=== PATIENT | female | born 1965 | race African-American/Black ===

== ENCOUNTER 2016-04-21 20:07 | Emergency (ER) | payer OTHER ==
[2016-04-21 20:48] VITALS: BP 140/75; PULSE 91; TEMP 98.8; BMI 40.8
[2016-04-22] MEDS ORDERED: IBUPROFEN 600 MG TABLET (FP) PO ONE ×2 (01:50→01:56)
[2016-04-22] MEDS ORDERED: OXYCODONE/APAP 5/325MG COMBO TABLET PO ONE (01:50)
--- NOTE | 2016-04-22 01:57 | PDOC ---
History of Present Illness - General Chief Complaint: Pain, Acute Stated Complaint: SWOLLEN LT KNEE Time Seen by Provider: 04/22/16 01:11 History Source: Patient Exam Limitations: No Limitations - History of Present Illness Initial Comments: 04/22/16 01:52 51yo Female patient presents to ED c/o left knee pain. Patient states while lying in bed on Tuesday, she turn and felt pain in her knee. She report excessive use of Aleve with no relief. She denies CP, Abd pain, n/v/d, back pain , cough, congestion, fall, trauma, or any other complaints at this time. Occurred: reports: last week Severity: Yes: moderate Lower Extremity Pain Location: left: knee Method of Injury: Yes: twisted Modifying Factors: improves with: pain medication, rest Lower Ext. Injury Location - Specific Injury Location Knees: right non-tender, left soft tissue tenderness, left bone tenderness, left pain, bilateral no evidence of injury, bilateral normal range of motion, bilateral normal inspection Extremity Pain Location - Extremity Pain Location Extremity Pain Locations: left: knee Past History - Travel Traveled outside of the country in the last 30 days: No Close contact w/someone who was outside of country & ill: No - Past Medical History Allergies/Adverse Reactions: Allergies Allergy/AdvReac Type Severity Reaction Status Date / Time No Known Allergies Allergy Verified 06/29/15 23:12 Home Medications: Ambulatory Orders Amlodipine Besylate 10 mg PO DAILY 06/29/15 Atorvastatin Calcium 10 mg PO DAILY 06/29/15 Glipizide 10 mg PO DAILY 06/29/15 Metformin HCl [Glucophage] 1,000 mg PO BID 06/29/15 Hydrocodone/Acetaminophen [Vicodin 5-300 mg Tablet] 1 - 2 each PO QID PRN #20 tablet MDD 8 tabs 06/30/15 Naproxen [Naprosyn -] 500 mg PO BID PRN #14 tablet 06/30/15 Diclofenac Sodium [Voltaren] 4 gm TP QID PRN #100 gel..gram. 04/22/16 Oxycodone HCl/Acetaminophen [Percocet 10-325 mg Tablet] 1 each PO Q6H PRN #20 tablet MDD 4 tabs 04/22/16 Diabetes: Yes HTN: Yes - Surgical History Cholecystectomy: Yes - Immunization History Immunization Up to Date: Yes - Psycho/Social/Smoking Cessation Hx Anxiety: No Suicidal Ideation: No Smoking History: Current every day smoker Number of Cigarettes Smoked Daily: 10 Information on smoking cessation initiated: No Hx Alcohol Use: No Drug/Substance Use Hx: No Substance Use Type: None Review of Systems - Review of Systems Able to Perform ROS?: Yes Is the patient limited Georgian proficient: No Constitutional: No: Chills, Fever HEENTM: No: Blurred Vision, Double Vision Respiratory: No: Cough, Orthopnea, Shortness of Breath Cardiac (ROS): No: Chest Pain, Lightheadedness, Palpitations ABD/GI: No: Diarrhea, Nausea, Poor Appetite, Poor Fluid Intake, Vomiting : No: Dysuria, Frequency, Flank Pain, Hematuria Musculoskeletal: Yes: Joint Pain, Joint Stiffness. No: Back Pain Integumentary: No: Bruising, Erythema Neurological: No: Headache, Seizure, Tingling, Tremors, Weakness All Other Systems: Reviewed and Negative *Physical Exam - Vital Signs Last Vital Signs Temp Pulse Resp BP Pulse Ox 98.8 F 91 H 16 140/75 100 04/21/16 20:45 04/21/16 20:45 04/21/16 20:45 04/21/16 20:45 04/21/16 20:45 - Physical Exam General Appearance: Yes: Nourished, Appropriately Dressed, Mild Distress Neck: positive: Trachea midline, Supple Respiratory/Chest: positive: Lungs Clear, Normal Breath Sounds Cardiovascular: positive: Regular Rhythm, Regular Rate Gastrointestinal/Abdominal: positive: Normal Bowel Sounds, Soft Musculoskeletal: positive: Normal Inspection Extremity: positive: Normal Capillary Refill, Normal Inspection, Normal Range of Motion, Other (Lt Knee tenderness on examination. ROM WNL. Patient able to bear weight.) Integumentary: positive: Normal Color, Dry, Warm Neurologic: positive: diversity manager II-XII NML intact, Fully Oriented, Alert, Normal Mood/ Affect, Normal Response, Motor Strength 5/5 *DC/Admit/Observation/Transfer Diagnosis at time of Disposition: Arthritis Left knee pain Qualifiers: Chronicity: acute Qualified Code(s): M25.562 - Pain in left knee - Discharge Dispostion Disposition: HOME Condition at time of disposition: Stable Admit: No - Prescriptions Prescriptions: Oxycodone HCl/Acetaminophen [Percocet 10-325 mg Tablet] 1 each PO Q6H PRN #20 tablet MDD 4 tabs PRN Reason: Severe Pain Diclofenac Sodium [Voltaren] 4 gm TP QID PRN #100 gel..gram. PRN Reason: Knee Pain - Referrals Referrals: Key Romero MD [Primary Care Provider] - Rodolfo Garcia MD [Staff Physician] - - Patient Instructions Printed Discharge Instructions: DI for Knee Pain, DI for Arthritis Additional Instructions: FOLLOW UP WITH DR. GARCIA (ORTHOPEDIC). CALL TO SCHEDULE APPOINTMENT. TAKE MEDICATIONS PRESCRIBED. DO NOT DRIVE, DRINK ALCOHOL, OR OPERATE HEAVY MACHINERY WHILE TAKING PERCOCET. APPLY WARM COMPRESS TO AFFECTED AREA NEEDED. RETURN IF ANY CONCERNS FOR FURTHER EVALUATION. Print Language: RWANDAN - Post Discharge Activity Work/School Note: Back to Work
[2016-04-22] MEDS ORDERED: OXYCODONE/APAP 5/325MG COMBO TABLET ONE (02:01)
[2016-04-22] MEDS ORDERED: KETOROLAC TROMETHAMINE 30 MG/1 ML VIAL IM ONE (02:01)
[2016-04-22] MEDS ORDERED: KETOROLAC TROMETHAMINE 30 MG/1 ML VIAL ONE (02:27)
== END 2016-04-22 02:33 | disposition home or self-care (01) ==
LOC: JERFT 20:07 → JER 20:07 → MERGE 20:07 → JER 04-22 02:33
PROC: 3E0233Z Introduction of Anti-inflammatory into Muscle, Percutaneous Approach (ICD-10-PCS; principal; 2016-04-21)
DX: M13.862 Other specified arthritis, left knee (principal); I10 Essential (primary) hypertension; E11.9 Type 2 diabetes mellitus without complications; Z79.84 Long term (current) use of oral hypoglycemic drugs
CPT/HCPCS: 73562-TC-LT; 99281-25

== ENCOUNTER 2016-08-05 07:27 | Emergency (ER) | payer OTHER ==
[2016-08-05 07:42] VITALS: BP 149/68; PULSE 84; TEMP 98; BMI 41.5
[2016-08-05] MEDS ORDERED: KETOROLAC TROMETHAMINE 30 MG/1 ML VIAL IVPUSH ONE (08:42)
--- NOTE | 2016-08-05 08:47 | PDOC ---
History of Present Illness <Sandra Albarado - Last Filed: 08/05/16 08:49> - History of Present Illness Initial Comments: 08/05/16 08:48 - History of Present Illness Initial Comments: 08/05/16 08:47 Patient is a 51 year old female with a significant past medical history of DM, hyperlipidemia and hypertension who presents to the ED with right elbow pain and swelling, spontaneous onset. Patient states that she was getting of the bus yesterday as she developed a pain with sudden onset to the right elbow. She states that the pain originates in the right upper extremity and radiates down the entire arm with tingling of the fingers. Patient also notes swelling of the right elbow and difficulty to move RUE or bend at the right elbow. She denies any broken skin at the right elbow. She denies any injury or trauma to the area She denies fever or chills. She denies any recent trauma. She denies any history of fracture of the right elbow. Patient denies prior history of DVT. PCP - Dr. Chano Romero Allergies - NKA <Sandra Albarado - Last Filed: 08/05/16 08:48> - General Chief Complaint: Pain Stated Complaint: RT SIDE PAIN Time Seen by Provider: 08/05/16 08:24 <Jaenen Leal - Last Filed: 08/06/16 15:17> - General Chief Complaint: Pain Stated Complaint: RT SIDE PAIN Time Seen by Provider: 08/05/16 08:24 Past History <Sandra Albarado - Last Filed: 08/05/16 08:49> - Past Medical History Diabetes: Yes HTN: Yes - Surgical History Abdominal Surgery: Yes Cholecystectomy: Yes - Immunization History Immunization Up to Date: Yes - Psycho/Social/Smoking Cessation Hx Anxiety: No Suicidal Ideation: No Smoking History: Current every day smoker Have you smoked in the past 12 months: Yes Number of Cigarettes Smoked Daily: 10 Information on smoking cessation initiated: No Hx Alcohol Use: No Drug/Substance Use Hx: No Substance Use Type: None <Janeen Leal - Last Filed: 08/06/16 15:17> - Past Medical History Allergies/Adverse Reactions: Allergies Allergy/AdvReac Type Severity Reaction Status Date / Time No Known Allergies Allergy Verified 01/07/14 16:37 Home Medications: Ambulatory Orders Metformin HCl [Glucophage] 1,000 mg PO BID 03/14/12 Oxycodone HCl/Acetaminophen [Percocet 5-325 mg Tablet -] 1 - 2 tab PO Q4H #20 tablet 01/07/14 Sulfamethoxazole/Trimethoprim [Bactrim DS -] 2 tab PO BID #28 tablet 01/07/14 Amlodipine Besylate 10 mg PO DAILY 06/29/15 Atorvastatin Calcium 10 mg PO DAILY 06/29/15 Glipizide 10 mg PO DAILY 06/29/15 Metformin HCl [Glucophage] 1,000 mg PO BID 06/29/15 Hydrocodone/Acetaminophen [Vicodin 5-300 mg Tablet] 1 - 2 each PO QID PRN #20 tablet MDD 8 tabs 06/30/15 Naproxen [Naprosyn -] 500 mg PO BID PRN #14 tablet 06/30/15 Diclofenac Sodium [Voltaren] 4 gm TP QID PRN #100 gel..gram. 04/22/16 Oxycodone HCl/Acetaminophen [Percocet 10-325 mg Tablet] 1 each PO Q6H PRN #20 tablet MDD 4 tabs 04/22/16 Review of Systems - Review of Systems Able to Perform ROS?: Yes Comments:: 08/05/16 08:45 12 point review of systems is as per history of present illness and otherwise negative <Janeen Leal - Last Filed: 08/06/16 15:17> *Physical Exam - Vital Signs Last Vital Signs Temp Pulse Resp BP Pulse Ox 98 F 84 18 149/68 100 08/05/16 07:39 08/05/16 07:39 08/05/16 07:39 08/05/16 07:39 08/05/16 07:39 <Sandra Albarado - Last Filed: 08/05/16 08:49> - Vital Signs Last Vital Signs Temp Pulse Resp BP Pulse Ox 98 F 84 18 149/68 100 08/05/16 07:39 08/05/16 07:39 08/05/16 07:39 08/05/16 07:39 08/05/16 07:39 - Physical Exam Comments: 08/05/16 08:45 Physical exam Last Vital Signs Temp Pulse Resp BP Pulse Ox 98 F 84 18 149/68 100 08/05/16 07:39 08/05/16 07:39 08/05/16 07:39 08/05/16 07:39 08/05/16 07:39 GENERAL: The patient is awake, alert, and fully oriented, and in no apparent distress. HEAD: Normal with no signs of trauma. EYES: sclera anicteric, conjunctiva are normal. ENT: Moist mucous membranes. NECK: Normal range of motion, supple LUNGS: Breath sounds equal, clear to auscultation bilaterally. No wheezes, and no crackles. HEART: Regular rate and rhythm, normal S1 and S2 without murmur, rub or gallop. ABDOMEN: Soft, nontender, normoactive bowel sounds. No guarding, no rebound. No masses appreciated. EXTREMITIES: Right upper extremity There is full range of motion of the right shoulder and right wrist There is swelling and tenderness from the mid right upper extremity, to the mid forearm, with diffuse tenderness without point tenderness There is decreased range of motion of the elbow There is some tenderness in the olecranon bursa, but it is not particularly swollen (mildly swollen and NOT fluctuant, boggy, or warm) There is no erythema or warmth The radial pulses intact Patient is able to make a fist and open her hand NEUROLOGICAL: Cranial nerves II through XII grossly intact. Normal speech, normal gait. Grossly nonfocal neurologic exam PSYCH: Normal mood, normal affect. SKIN: Warm, Dry, <Janeen Leal - Last Filed: 08/06/16 15:17> ED Treatment Course - LABORATORY CBC & Chemistry Diagram: 08/05/16 09:04 08/05/16 09:04 - RADIOLOGY Radiology Studies Ordered: Category Date Time Status ELBOW-RIGHT [RAD] Stat Radiology 08/05/16 08:40 Ordered FOREARM- RIGHT [RAD] Stat Radiology 08/05/16 08:40 Ordered HUMERUS-RIGHT [RAD] Stat Radiology 08/05/16 08:40 Ordered DUPLEX VASCUL US-1 ARM [US] Stat Ultrasound 08/05/16 08:41 Ordered <Janeen Leal - Last Filed: 08/06/16 15:17> Medical Decision Making - Medical Decision Making 08/05/16 11:05 Laboratory Results - last 24 hr 08/05/16 08/05/16 08/05/16 09:04 09:04 09:04 WBC 8.5 RBC 5.05 Hgb 12.9 Hct 40.5 MCV 80.1 MCHC 31.8 L RDW 14.9 Plt Count 290 MPV 7.2 L Sodium 137 Potassium 4.4 Chloride 100 Carbon Dioxide 28 Anion Gap 9 BUN 12 Creatinine 0.7 Creat Clearance w eGFR > 60 Random Glucose 231 H Uric Acid 2.7 Cancelled Calcium 9.3 Total Bilirubin 0.3 D AST 15 D ALT 31 Alkaline Phosphatase 95 Total Protein 6.7 Albumin 3.6 08/05/16 11:06 DVT ultrasound of the right arm No evidence of DVT All veins are widely patent with normal flow 08/05/16 11:43 Right humerus, forearm, and elbow as read by me-NAD Awaiting radiologist report 08/05/16 11:46 Right elbow series, right forearm series, and right humerus series- NAD as read by radiology 08/05/16 11:[address] Verdugo's office-Dr. Verdugo will see the patient at 2:40 PM this afternoon in the office for further evaluation <Janeen Leal - Last Filed: 08/06/16 15:17> *DC/Admit/Observation/Transfer <Sandra Ablarado - Last Filed: 08/05/16 08:49> <Janeen Leal - Last Filed: 08/06/16 15:17> Diagnosis at time of Disposition: Right elbow pain, Right arm pain - Discharge Dispostion Disposition: HOME - Referrals Referrals: Key Romero MD [Primary Care Provider] - Christian Verdugo MD [Staff Physician] - (Orthopedics-you have an appointment with Dr. Verdugo at 2:40 PM today at [facility]) - Patient Instructions Printed Discharge Instructions: DI for Elbow Pain, How to Use a Sling Additional Instructions: Sling, rest, Tylenol or Motrin for pain Please follow-up with Dr. Verdugo in the office at [facility] at 2:40 PM today- an appointment has been made for you Followup with your primary care physician in 24-48 hours Return immediately if you worsen in any way - Post Discharge Activity Work/School Note: Back to Work
[2016-08-05] MEDS ORDERED: KETOROLAC TROMETHAMINE 30 MG/1 ML VIAL ONE (08:59)
[2016-08-05 09:37] LABS: ALBUMIN 3.6 g/dl (3.4-5.0); ANION GAP 9 (8-16); BILIRUBIN,TOTAL 0.3 mg/dL (0.2-1.0); CALCIUM 9.3 mg/dL (8.5-10.1); CO2 28 mmol/L (21-32); CREATININE 0.7 mg/dL (0.55-1.02); GLUCOSE,RANDOM 231 mg/dL (74-106); SGOT/AST 15 U/L (15-37); SGPT/ALT 31 U/L (12-78); URIC ACID 2.7 mg/dL (2.6-7.2)
[2016-08-05 09:40] LABS: ALK PHOS 95 U/L (45-117); TOT PROT 6.7 g/dl (6.4-8.2)
[2016-08-05 09:54] LABS: MCH 25.5 pg (25.7-33.7); MCHC 31.8 g/dl (32.0-36.0); MEAN CELL VOLUME 80.1 fl (80-96); MEAN PLT VOLUME 7.2 fl (7.5-11.1); PLATELET COUNT 290 K/MM3 (134-434); RDW 14.9 % (11.6-15.6); WHITE BLOOD COUNT 8.5 K/mm3 (4.0-10.0)
== END 2016-08-05 12:07 | disposition home or self-care (01) ==
LOC: JER 07:27 → MERGE 07:27 → JER 12:07
DX: M25.521 Pain in right elbow (principal); I10 Essential (primary) hypertension; E78.5 Hyperlipidemia, unspecified; E11.9 Type 2 diabetes mellitus without complications; Z79.84 Long term (current) use of oral hypoglycemic drugs; F17.210 Nicotine dependence, cigarettes, uncomplicated
CPT/HCPCS: 36415; 73060-TC-RT; 73070-TC-RT; 73090-TC-RT; 80053; 84550; 85027; 85651; 93971; 99282-25

== ENCOUNTER 2016-12-19 09:19 | Emergency (ER) | payer OTHER ==
[2016-12-19 09:23] VITALS: BMI 42.4
[2016-12-19] MEDS ORDERED: KETOROLAC TROMETHAMINE 30 MG/1 ML VIAL IVPUSH ONE (09:46)
--- NOTE | 2016-12-19 09:51 | PDOC ---
History of Present Illness - General Chief Complaint: Pain Stated Complaint: BACK, ABD PAIN Time Seen by Provider: 12/19/16 09:41 History Source: Patient - History of Present Illness Timing/Duration: reports: constant Quality: reports: other Abdominal Pain Onset Location: reports: flank Past History - Past Medical History Allergies/Adverse Reactions: Allergies Allergy/AdvReac Type Severity Reaction Status Date / Time No Known Allergies Allergy Verified 12/19/16 09:23 Home Medications: Ambulatory Orders Metformin HCl [Glucophage] 1,000 mg PO BID 03/14/12 Oxycodone HCl/Acetaminophen [Percocet 5-325 mg Tablet -] 1 - 2 tab PO Q4H #20 tablet 01/07/14 Sulfamethoxazole/Trimethoprim [Bactrim DS -] 2 tab PO BID #28 tablet 01/07/14 Amlodipine Besylate 10 mg PO DAILY 06/29/15 Atorvastatin Calcium 10 mg PO DAILY 06/29/15 Glipizide 10 mg PO DAILY 06/29/15 Hydrocodone/Acetaminophen [Vicodin 5-300 mg Tablet] 1 - 2 each PO QID PRN #20 tablet MDD 8 tabs 06/30/15 Naproxen [Naprosyn -] 500 mg PO BID PRN #14 tablet 06/30/15 Diclofenac Sodium [Voltaren] 4 gm TP QID PRN #100 gel..gram. 04/22/16 Clindamycin [Cleocin -] 300 mg PO Q6HPO #28 capsule 12/19/16 Tramadol HCl 50 mg PO Q6H #10 tablet MDD 200 mg 12/19/16 Diabetes: Yes HTN: Yes - Surgical History Abdominal Surgery: Yes (HERNIA) Cholecystectomy: Yes - Immunization History Immunization Up to Date: Yes - Psycho/Social/Smoking Cessation Hx Anxiety: No Suicidal Ideation: No Smoking Status: No Smoking History: Current every day smoker Have you smoked in the past 12 months: Yes Number of Cigarettes Smoked Daily: 10 Information on smoking cessation initiated: Yes 'Breaking Loose' booklet given: 12/19/16 Hx Alcohol Use: Yes (SOCIAL) Drug/Substance Use Hx: No Substance Use Type: None Hx Substance Use Treatment: No Review of Systems - Review of Systems Constitutional: No: Chills, Fever Respiratory: No: Shortness of Breath Cardiac (ROS): No: Chest Pain ABD/GI: Yes: Nausea. No: Vomiting : Yes: Flank Pain. No: Dysuria, Hematuria Integumentary: Yes: Other (abscess) *Physical Exam - Vital Signs Last Vital Signs Temp Pulse Resp BP Pulse Ox 99.0 F 102 H 18 138/77 100 12/19/16 09:20 12/19/16 09:20 12/19/16 09:20 12/19/16 09:20 12/19/16 09:20 - Physical Exam General Appearance: Yes: Appropriately Dressed, Moderate Distress HEENT: positive: Normal Voice Neck: positive: Supple Respiratory/Chest: positive: Lungs Clear, Normal Breath Sounds. negative: Respiratory Distress Cardiovascular: positive: Regular Rate, S1, S2 Female Pelvic Exam: positive: other (~1.5cm induration to L suprapubic area w/ ? fluctucance, no overlying erythema) Gastrointestinal/Abdominal: positive: Tender (poorly localized tenderness to R flank/groin, unclear ttp over mcburneys given pannus, no CVAT), Soft Musculoskeletal: negative: CVA Tenderness Extremity: positive: Normal Inspection Integumentary: positive: Dry, Warm Neurologic: positive: Fully Oriented, Alert, Normal Mood/Affect Procedures - Incision and Drainage I&D Site: Left: Groin (~2cm induration w/ ?fluctuance, no overlying erythema) Anesthesia: 1% Lidocaine Volume(ml): 9 Blade Size: 11 Attempts: 1 (w/ copious pus) Iodinated Packin/4 in Plain Packing: Yes Complications: none Dressing: Yes ED Treatment Course - LABORATORY CBC & Chemistry Diagram: 12/19/16 10:30 12/19/16 10:30 Medical Decision Making - Medical Decision Making 12/19/16 09:47 51 yo obesed female, h/o NIDDM, HTN, s/p maxwell and umbilical hernia repair, here w/ R flank pain x 4 days. Unable to describe pain but states it is constant and 10/10 in intensity w/ no exacerbating/alleviating factors. Also reports "loose" bowel movement and nausea. No vomiting, dysuria or hematuria. No h/o kidney stone or gallstones. Pt also c/o "abscess" to L side of suprapubic area x 3-4 days. No drainage See exam R flank pain Renal stone vs pyelo vs less likely appy vs atypical presentation of diverticulitis, small L suprapubic abscess unlikely source of R flank pain especially w/ no overlying/extensive cellulitis -pain control -labs -I&D suprapubic abscess 12/19/16 09:59 12/19/16 10:09 12/19/16 11:08 BG in the 387, no gap. IVF in progress. 1+ bld on ua, CT r/o stone pending 12/19/16 11:09 12/19/16 12:29 CT read as neg for acute pathology. 12/19/16 12:59 S/p I&D w/ copious pus. Will start on abx in setting of uncontrolled DM and have pt return in 2 days for wound check. IVF in progress for BG of 387, will rpt FS 12/19/16 13:22 12/19/16 14:25 FS 261. Pt stable for discharge at this time 12/19/16 14:28 *DC/Admit/Observation/Transfer Diagnosis at time of Disposition: Flank pain, Abscess - Discharge Dispostion Disposition: HOME Condition at time of disposition: Improved - Prescriptions Prescriptions: Clindamycin [Cleocin -] 300 mg PO Q6HPO #28 capsule Tramadol HCl 50 mg PO Q6H #10 tablet MDD 200 mg - Referrals Referrals: Key Romero MD [Primary Care Provider] - - Patient Instructions Additional Instructions: The cause of your flank pain is unclear at this time as your CAT scan did not reveal any etiology. Pain is possibly muscular versus radiation from your groin abscess. Take tramadol for severe pain only. Regarding your wound, keep it clean and dry and return to ER for wound check in 48 hours. Take antibiotics as prescribed. Please follow-up with your primary care physician next week for better management of your diabetes
[2016-12-19 10:19] LABS: URINE APPEARANCE CLEAR; URINE BILIRUBIN NEGATIVE (NEGATIVE); URINE BLOOD 1+ (NEGATIVE); URINE COLOR LTYELLOW; URINE GLUCOSE (UA) 3+ (NEGATIVE); URINE KETONE NEGATIVE (NEGATIVE); URINE NITRITE NEGATIVE (NEGATIVE); URINE PROTEIN NEGATIVE (NEGATIVE); URINE UROBILINOGEN NEGATIVE mg/dL (0.2-1.0)
[2016-12-19] MEDS ORDERED: KETOROLAC TROMETHAMINE 30 MG/1 ML VIAL ONE (10:19)
[2016-12-19 10:29] LABS: URINE LEUK ESTERASE 1+ (NEGATIVE); URINE RBC 4 /hpf (0-3); URINE WBC 9 /hpf (3-5)
[2016-12-19 10:38] LABS: BASOPHIL 0.6 % (0-2.0); EOSINOPHIL 1.3 % (0-4.5); MCH 25.8 pg (25.7-33.7); MCHC 32.4 g/dl (32.0-36.0); MEAN CELL VOLUME 79.5 fl (80-96); MEAN PLT VOLUME 6.4 fl (7.5-11.1); NEUTROPHILS 71.1 % (42.8-82.8); PLATELET COUNT 301 K/MM3 (134-434); RDW 14.6 % (11.6-15.6); WHITE BLOOD COUNT 8.9 K/mm3 (4.0-10.0)
[2016-12-19 11:00] LABS: ALBUMIN 3.4 g/dl (3.4-5.0); ANION GAP 7 (8-16); BILIRUBIN,TOTAL 0.3 mg/dL (0.2-1.0); CALCIUM 9.3 mg/dL (8.5-10.1); CO2 28 mmol/L (21-32); CREATININE 0.8 mg/dL (0.55-1.02); SGOT/AST 9 U/L (15-37); SGPT/ALT 31 U/L (12-78); TOT PROT 6.8 g/dl (6.4-8.2)
[2016-12-19 11:01] LABS: ALK PHOS 93 U/L (45-117)
[2016-12-19 11:07] LABS: GLUCOSE,RANDOM 387 mg/dL (74-106)
[2016-12-19] MEDS ORDERED: SODIUM CHLORIDE 1,000 ML IV STA (11:07)
[2016-12-19] MEDS ORDERED: traMADol HCL 50 MG TABLET PO ONE (13:00)
[2016-12-19] MEDS ORDERED: traMADol HCL 50 MG TABLET ONE (14:10)
[2016-12-19 14:29] VITALS: BP 140/75; PULSE 84; TEMP 98.2
== END 2016-12-19 14:40 | disposition home or self-care (01) ==
LOC: JER 09:19
PROC: 0J980ZZ Drainage of Abdomen Subcutaneous Tissue and Fascia, Open Approach (ICD-10-PCS; principal; 2016-12-19)
PROC: 3E0337Z Introduction of Electrolytic and Water Balance Substance into Peripheral Vein, Percutaneous Approach (ICD-10-PCS; 2016-12-19)
PROC: 3E0333Z Introduction of Anti-inflammatory into Peripheral Vein, Percutaneous Approach (ICD-10-PCS; 2016-12-19)
DX: L02.214 Cutaneous abscess of groin (principal); I10 Essential (primary) hypertension; E11.9 Type 2 diabetes mellitus without complications; Z79.84 Long term (current) use of oral hypoglycemic drugs; F17.210 Nicotine dependence, cigarettes, uncomplicated
CPT/HCPCS: 36415; 74176-TC; 80053; 81003; 81015; 85025; 87086; 87186; 99282-25

== ENCOUNTER 2016-12-21 18:57 | Emergency (ER) | payer OTHER ==
[2016-12-21 19:00] VITALS: BP 148/73; PULSE 97; TEMP 98.8; BMI 40.8
--- NOTE | 2016-12-21 20:20 | PDOC ---
Suture Removal/Wound Check HPI - History of Present Illness Chief Complaint: Revisit,Wound Recheck Stated Complaint: wound check Time Seen by Provider: 12/21/16 20:10 History Source: Yes: Patient Exam Limitations: Yes: No Limitations Treated at: [facility] ED - Previous ED Treatment Type of procedure performed on last visit: Yes: I&D of Abscess Tetanus Immunization: Yes: Up to Date Antibiotics Prescribed: Yes (taking since yesterday) - Onset of Previous Treatment Comment:: 12/21/16 20:18 Him for evaluation of wound/post incision and drainage of abscess to lower abdomen pubic area. Was seen here 2 days ago, started antibiotics yesterday secondary to inability to receive from pharmacy. Patient denies fever, states packing fell out yesterday. Is is improving with less swelling and tenderness Past History - Travel Traveled outside of the country in the last 30 days: No Close contact w/someone who was outside of country & ill: No - Past Medical History Allergies/Adverse Reactions: Allergies No Known Allergies Allergy (Verified 12/21/16 19:00) Home Medications: Ambulatory Orders Metformin HCl [Glucophage] 1,000 mg PO BID 03/14/12 Oxycodone HCl/Acetaminophen [Percocet 5-325 mg Tablet -] 1 - 2 tab PO Q4H #20 tablet 01/07/14 Sulfamethoxazole/Trimethoprim [Bactrim DS -] 2 tab PO BID #28 tablet 01/07/14 Amlodipine Besylate 10 mg PO DAILY 06/29/15 Atorvastatin Calcium 10 mg PO DAILY 06/29/15 Glipizide 10 mg PO DAILY 06/29/15 Hydrocodone/Acetaminophen [Vicodin 5-300 mg Tablet] 1 - 2 each PO QID PRN #20 tablet MDD 8 tabs 06/30/15 Naproxen [Naprosyn -] 500 mg PO BID PRN #14 tablet 06/30/15 Diclofenac Sodium [Voltaren] 4 gm TP QID PRN #100 gel..gram. 04/22/16 Clindamycin [Cleocin -] 300 mg PO Q6HPO #28 capsule 12/20/16 Tramadol HCl 50 mg PO Q6H #10 tablet MDD 200 mg 12/20/16 General: Yes: no pertinent history - Immunization History Immunizations Up to Date: Yes Tetanus Status: Less than 5 years - Social History Smoking History: No Smoking Status: Never smoked Number of Ciarettes Per Day: 10 Alcohol Use: none Drug Use: none Suture Removal/Wound Check PE - Physical Exam Laceration/Wound Check Symptoms: reports: None Current Severity Level: None Maximum Severity Level: None Pain Localization: None Pain Radiation: None *Review of Systems - Review of Systems Able to Perform ROS?: Yes Constitutional: Yes: Symptoms Reported, See HPI, Malaise. No: Fever HEENTM: No: Symptoms Reported ABD/GI: Yes: Symptoms Reported, See HPI, Other Musculoskeletal: No: Symptoms Reported (abdominal wound) Integumentary: Yes: Symptoms Reported, See HPI, Rash All Other Systems: Reviewed and Negative Medical Decision Making - Medical Decision Making 12/21/16 20:15 Healing status post incision and drainage, induration resolving, will continue antibiotics and hot soaks. 12/21/16 20:19 *DC/Admit/Observation/Transfer Diagnosis at time of Disposition: Visit for wound check - Discharge Dispostion Disposition: HOME Condition at time of disposition: Stable Admit: No - Referrals Referrals: Key Romero MD [Primary Care Provider] - Humberto Warner MD [Staff Physician] - - Patient Instructions Additional Instructions: Rest, keep area elevated. Avoid strenuous activity or exercise until wound is healed Use hot soaks to area to bring more blood to the surface and encourage drainage May change dressings as needed to keep clean - Allow water from shower to wash area thoroughly for 2-3 minutes, and pat dry upon exit of shower and replace dressing. Change his dressing daily until the wound is completely healed. May use Tylenol or Motrin for mild pain relief Use stronger medications as directed and prescribed Continue all medications as prescribed Followup with private physician in 2-3 days for wound check Return to emergency Department for worsening swelling, pain, redness, fevers as needed - Post Discharge Activity Work/School Note: Back to Work
== END 2016-12-21 20:25 | disposition home or self-care (01) ==
LOC: JERFT 18:57
DX: Z09 Encounter for follow-up examination after completed treatment for conditions other than malignant neoplasm (principal)
CPT/HCPCS: 99281-25

== ENCOUNTER 2017-01-19 11:29 | Emergency (ER) | payer OTHER ==
[2017-01-19 11:41] VITALS: BP 144/70; PULSE 85; TEMP 98.2; BMI 42.4
[2017-01-19] MEDS ORDERED: KETOROLAC TROMETHAMINE 30 MG/1 ML VIAL IM ONE (12:25)
--- NOTE | 2017-01-19 12:26 | PDOC ---
History of Present Illness - General Chief Complaint: Back Pain Stated Complaint: Right lowe back pain radiating to leg Time Seen by Provider: 01/19/17 12:12 History Source: Patient Exam Limitations: No Limitations - History of Present Illness Initial Comments: 01/19/17 12:53 Chief complaint: Back pain Patient 51-year-old female with a history of diabetes, states that her sugars were in the 100s yesterday came in complaining of right sided back and hip pain , states she's had this in the past and feels similar. No numbness, dysuria, incontinence or saddle anesthesia. No fever. Patient is ambulatory but uncomfortable. GENERAL/CONSTITUTIONAL: No fever, weakness. dizziness HEAD, EYES, EARS, NOSE AND THROAT: No change in vision. No ear pain or discharge. No sore throat. CARDIOVASCULAR: No chest pain RESPIRATORY: No shortness of breath or cough GASTROINTESTINAL: No pain, nausea, vomiting, diarrhea or constipation GENITOURINARY: No dysuria MUSCULOSKELETAL: no: neck, +back pain SKIN: No rash NEUROLOGIC: No headache, vertigo, loss of consciousness, or loss of sensation. GENERAL: The patient is awake, alert, and fully oriented, in no acute distress. HEAD: Normal with no signs of trauma. EYES: Pupils equal, round and reactive to light, sclera anicteric, conjunctiva clear. ENT: pharynx: no erythema, no exudate, uvula midline NECK: supple CHEST: clear, nontender, rr ABD: soft, nontender Back: Right SI tenderness, no CVAT EXTREMITIES: Normal range of motion, no edema. Strength 5 out of 5 upper and lower extremities, bilaterally, neurovascular intact NEUROLOGICAL: Normal speech, normal gait. SKIN: Warm, Dry Past History - Past Medical History Allergies/Adverse Reactions: Allergies Allergy/AdvReac Type Severity Reaction Status Date / Time No Known Allergies Allergy Verified 01/19/17 11:41 Home Medications: Ambulatory Orders Metformin HCl [Glucophage] 1,000 mg PO BID 03/14/12 Glipizide 10 mg PO DAILY 06/29/15 Amlodipine Besylate 5 mg PO DAILY 01/19/17 Oxycodone HCl/Acetaminophen [Percocet 5-325 mg Tablet] 1 tab PO Q6H #20 tablet MDD 4 01/19/17 Sitagliptin Phosphate [Januvia] 100 mg PO DAILY 01/19/17 Diabetes: Yes HTN: Yes - Surgical History Abdominal Surgery: Yes (HERNIA, tubal ligation) Cholecystectomy: Yes - Immunization History Immunization Up to Date: Yes - Suicide/Smoking/Psychosocial Hx Smoking Status: No Smoking History: Current every day smoker Have you smoked in the past 12 months: Yes Number of Cigarettes Smoked Daily: 10 Information on smoking cessation initiated: Yes 'Breaking Loose' booklet given: 01/19/17 Hx Alcohol Use: Yes (Occasionally) Drug/Substance Use Hx: No Substance Use Type: None Hx Substance Use Treatment: No *Physical Exam - Vital Signs Last Vital Signs Temp Pulse Resp BP Pulse Ox 98.2 F 85 15 144/70 100 01/19/17 11:38 01/19/17 11:38 01/19/17 11:38 01/19/17 11:38 01/19/17 11:38 ED Treatment Course - RADIOLOGY Radiology Studies Ordered: Category Date Time Status SPINE-LUMBAR ONLY [RAD] Stat Radiology 01/19/17 12:24 Ordered Medical Decision Making - Medical Decision Making 01/19/17 13:50 Patient with symptoms consistent with sciatica, right, abdominal exam is benign. No recent imaging of her back. Will get an x-ray, check a UA given that she is diabetic and if pain medicine and reassess. Patient has no saddle anesthesia, incontinence, dysuria, numbness and is able to ambulate 01/19/17 15:07 Patient felt better on discharge, x-ray showed no acute pathology *DC/Admit/Observation/Transfer Diagnosis at time of Disposition: Sciatica Qualifiers: Laterality: right Qualified Code(s): M54.31 - Sciatica, right side - Discharge Dispostion Disposition: HOME Condition at time of disposition: Stable Admit: No - Prescriptions Prescriptions: Oxycodone HCl/Acetaminophen [Percocet 5-325 mg Tablet] 1 tab PO Q6H #20 tablet MDD 4 - Referrals Referrals: Key Romero MD [Primary Care Provider] - Aj Stratton MD [Staff Physician] - - Patient Instructions Additional Instructions: No heavy lifting or bending Apply ice to the area 20 minutes every 2 hours for the next 2 days Continue taking Motrin 600 mg every 6 hours for pain. If still in pain he can also take Percocet one to 2 tablets every 4 hours. Return to the nearest ER if numbness, weakness, severe pain, problems with urinating or having bowel movements. Call orthopedist today for an appointment for further evaluation - Post Discharge Activity Forms/Work/School Notes: Back to Work
[2017-01-19] MEDS ORDERED: KETOROLAC TROMETHAMINE 30 MG/1 ML VIAL ONE (12:37)
[2017-01-19 12:39] LABS: URINE APPEARANCE SLCLOUDY; URINE BILIRUBIN NEGATIVE (NEGATIVE); URINE BLOOD 1+ (NEGATIVE); URINE COLOR LTYELLOW; URINE GLUCOSE (UA) 3+ (NEGATIVE); URINE KETONE NEGATIVE (NEGATIVE); URINE NITRITE NEGATIVE (NEGATIVE); URINE PROTEIN NEGATIVE (NEGATIVE); URINE UROBILINOGEN NEGATIVE mg/dL (0.2-1.0)
[2017-01-19 12:42] LABS: URINE BACTERIA RARE /hpf (NONE SEEN); URINE MUCUS RARE; URINE RBC <1 /hpf (0-3); URINE WBC 3 /hpf (3-5)
[2017-01-19 16:53] LABS: URINE LEUK ESTERASE 1+ (NEGATIVE)
== END 2017-01-19 14:02 | disposition home or self-care (01) ==
LOC: JERFT 11:29
PROC: 3E0233Z Introduction of Anti-inflammatory into Muscle, Percutaneous Approach (ICD-10-PCS; principal; 2017-01-19)
DX: M54.31 Sciatica, right side (principal); E11.9 Type 2 diabetes mellitus without complications; I10 Essential (primary) hypertension; F17.210 Nicotine dependence, cigarettes, uncomplicated
CPT/HCPCS: 72100-TC; 81003; 81015; 99281-25

== ENCOUNTER 2017-06-20 18:42 | Emergency (ER) | payer OTHER ==
[2017-06-20 19:20] VITALS: BP 140/80; PULSE 87; TEMP 98.4; BMI 43.9
--- NOTE | 2017-06-20 20:32 | PDOC ---
History of Present Illness - General Chief Complaint: Pain Stated Complaint: ABD PAIN Time Seen by Provider: 06/20/17 20:31 History Source: Patient Exam Limitations: No Limitations - History of Present Illness Initial Comments: 06/20/17 21:44 52-year-old female with history of GERD and epigastric pain complains of worsening epigastric pain with burning up the chest into the throat after eating. Patient reports that pain is worse when laying or after eating. Reports slight nausea. Denies vomiting/diarrhea/constipation. No urinary symptoms, chest pain, diaphoresis 06/20/17 21:45 past medical history as listed. Past History - Past Medical History Allergies/Adverse Reactions: Allergies Allergy/AdvReac Type Severity Reaction Status Date / Time No Known Allergies Allergy Verified 06/20/17 19:17 Home Medications: Ambulatory Orders metFORMIN HCL [Glucophage] 1,000 mg PO BID 03/14/12 Glipizide 10 mg PO DAILY 06/29/15 Amlodipine Besylate 5 mg PO DAILY 01/19/17 Oxycodone HCl/Acetaminophen [Percocet 5-325 mg Tablet] 1 tab PO Q6H #20 tablet MDD 4 01/19/17 Sitagliptin Phosphate [Januvia] 100 mg PO DAILY 01/19/17 Famotidine [Pepcid -] 40 mg PO DAILY #14 tablet 06/20/17 Mag Hydrox/Al Hydrox/Simeth [Mylanta Suspension -] 30 ml PO Q6H PRN #1 bottle COPD: No Diabetes: Yes HTN: Yes - Surgical History Abdominal Surgery: Yes (HERNIA, tubal ligation) Cholecystectomy: Yes - Immunization History Immunization Up to Date: Yes - Suicide/Smoking/Psychosocial Hx Smoking Status: No Smoking History: Current every day smoker Have you smoked in the past 12 months: Yes Number of Cigarettes Smoked Daily: 10 Information on smoking cessation initiated: No 'Breaking Loose' booklet given: 01/19/17 Hx Alcohol Use: Yes (Occasionally) Drug/Substance Use Hx: No Substance Use Type: None Hx Substance Use Treatment: No Review of Systems - Review of Systems Able to Perform ROS?: Yes Is the patient limited Turkmen proficient: No Constitutional: No: Symptoms Reported, See HPI, Chills, Diaphoresis, Fever, Loss of Appetite, Malaise, Night Sweats, Weakness, Weight Stable, Unintentional Wgt. Loss, Unexplained wgt Loss, Other HEENTM: No: Symptoms Reported, See HPI, Eye Pain, Blurred Vision, Tearing, Recent change in vision, Double Vision, Cataracts, Ear Pain, Ocular Prothesis, Ear Discharge, Nose Pain, Nose Congestion, Tinnitus, Nose Bleeding, Hearing Loss , Throat Pain, Throat Swelling, Mouth Pain, Dental Problems, Difficulty Swallowing, Mouth Swelling, Other ABD/GI: Yes: Nausea, Abdominal cramping (upper abdomen and epigastric area) Musculoskeletal: Yes: Back Pain (left side) Neurological: No: Symptoms reported, See HPI, Headache, Numbness, Paresthesia, Pre-Existing Deficit, Seizure, Tingling, Tremors, Weakness, Unsteady Gait, Ataxia, Dizziness, Other Psychiatric: No: Anxiety, Depression, Frequent Crying, Stressors, Sleep Pattern Change, Emotional Problems, Mood Swings, Change in Appetite, Other *Physical Exam - Vital Signs Last Vital Signs Temp Pulse Resp BP Pulse Ox 98.4 F 87 18 140/80 99 06/20/17 19:17 06/20/17 19:17 06/20/17 19:17 06/20/17 19:17 06/20/17 19:17 - Physical Exam General Appearance: Yes: Appropriately Dressed Respiratory/Chest: positive: Lungs Clear, Normal Breath Sounds Cardiovascular: positive: Regular Rhythm, Regular Rate Gastrointestinal/Abdominal: positive: Normal Bowel Sounds, Soft Musculoskeletal: positive: Normal Inspection Extremity: positive: Normal Capillary Refill, Normal Inspection, Normal Range of Motion Integumentary: positive: Normal Color, Dry, Warm Neurologic: positive: Fully Oriented, Alert, Normal Mood/Affect ED Treatment Course - LABORATORY CBC & Chemistry Diagram: 06/20/17 21:20 06/20/17 21:20 Progress Note - Progress Note Progress Note: A: GAstritis P: CBC CMP PPI maalox and reevaluate *DC/Admit/Observation/Transfer Diagnosis at time of Disposition: Gastritis Qualifiers: Gastritis type: unspecified gastritis Chronicity: acute Gastritis bleeding: without bleeding Qualified Code(s): K29.00 - Acute gastritis without bleeding - Discharge Dispostion Disposition: HOME - Prescriptions Prescriptions: Famotidine [Pepcid -] 40 mg PO DAILY #14 tablet Mag Hydrox/Al Hydrox/Simeth [Mylanta Suspension -] 30 ml PO Q6H PRN #1 bottle PRN Reason: Dyspepsia - Referrals Referrals: Key Romero MD [Primary Care Provider] - Call tomorrow García Loo MD [Staff Physician] - Call tomorrow - Patient Instructions Printed Discharge Instructions: [place] Diet Additional Instructions: Start a bland diet. Avoid spicy food/caffeinated beverages/high acidic food. Avoid smoking cigarettes. Take Pepcid and Maalox as prescribed Follow up with you doctor as soon as possible - Post Discharge Activity Forms/Work/School Notes: Back to Work
[2017-06-20] MEDS ORDERED: FAMOTIDINE 20 MG/50 ML IVPB 20 MG/50 ML MG IVPB ONE ×2 (20:50→21:07)
[2017-06-20 21:31] LABS: BASO % 0.9 % (0-2.0); EOS % 4.1 % (0-4.5); HEMATOCRIT 36.7 % (32.4-45.2); HEMOGLOBIN 12.1 GM/dL (10.7-15.3); LYMPH % 38.3 % (8-40); MCH 25.8 pg (25.7-33.7); MEAN CELL VOLUME 78.1 fl (80-96); MEAN PLT VOLUME 6.5 fl (7.5-11.1); MONO % 6.6 % (3.8-10.2); NEUT % 50.1 % (42.8-82.8); PLATELET COUNT 324 K/MM3 (134-434); RBC 4.69 M/mm3 (3.60-5.2); WHITE BLOOD COUNT 7.9 K/mm3 (4.0-10.0)
[2017-06-20] MEDS ORDERED: MAG HYDROX/AL HYDROX/SIMETH 30 ML UNIT-DOSE CUP PO ONE (21:35)
[2017-06-20 22:04] LABS: ALBUMIN 3.4 g/dl (3.4-5.0); ALK PHOS 82 U/L (45-117); ANION GAP 8 (8-16); BILIRUBIN,TOTAL 0.1 mg/dL (0.2-1.0); BLOOD UREA NITROGEN 11 mg/dL (7-18); CALCIUM 8.7 mg/dL (8.5-10.1); CHLORIDE 103 mmol/L (98-107); CO2 25 mmol/L (21-32); CREATININE 0.6 mg/dL (0.55-1.02); GLUCOSE,RANDOM 174 mg/dL (74-106); LIPASE 141 U/L (73-393); POTASSIUM 4.1 mmol/L (3.5-5.1); SGOT/AST 9 U/L (15-37); SGPT/ALT 27 U/L (12-78); SODIUM 136 mmol/L (136-145); TOT PROT 6.6 g/dl (6.4-8.2)
[2017-06-20] MEDS ORDERED: MAG HYDROX/AL HYDROX/SIMETH 30 ML UNIT-DOSE CUP ONE (22:13)
[2017-06-20 22:40] LABS: URINE APPEARANCE CLEAR; URINE BILIRUBIN NEGATIVE (NEGATIVE); URINE BLOOD 2+ (NEGATIVE); URINE COLOR STRAW; URINE GLUCOSE (UA) NEGATIVE (NEGATIVE); URINE KETONE NEGATIVE (NEGATIVE); URINE LEUK ESTERASE TRACE (NEGATIVE); URINE NITRITE NEGATIVE (NEGATIVE); URINE PROTEIN NEGATIVE (NEGATIVE); URINE UROBILINOGEN NEGATIVE mg/dL (0.2-1.0)
[2017-06-20 22:53] LABS: EPI CELLS RARE /HPF (FEW); URINE BACTERIA RARE /hpf (NONE SEEN); URINE MUCUS RARE
[2017-06-20] MEDS ORDERED: ACETAMINOPHEN 325 MG TABLET (FP) PO ONE (23:37)
[2017-06-20] MEDS ORDERED: ACETAMINOPHEN 325 MG TABLET (FP) ONE (23:41)
== END 2017-06-21 | disposition home or self-care (01) ==
LOC: JER 18:42
PROC: 3E033GC Introduction of Other Therapeutic Substance into Peripheral Vein, Percutaneous Approach (ICD-10-PCS; principal; 2017-06-20)
DX: K29.00 Acute gastritis without bleeding (principal); I10 Essential (primary) hypertension; E11.9 Type 2 diabetes mellitus without complications; Z79.84 Long term (current) use of oral hypoglycemic drugs
CPT/HCPCS: 36415; 80053; 81003; 81015; 83690; 84484; 85025; 99281-25

== ENCOUNTER 2017-06-22 08:14 | Emergency (ER) | payer OTHER ==
[2017-06-22 08:31] VITALS: BMI 43.9
[2017-06-22] MEDS ORDERED: FAMOTIDINE IV 20 MG/12 ML VIAL IVPUSH ONE (09:17)
[2017-06-22] MEDS ORDERED: SUCRALFATE 1 GM TABLET (FP) PO ONE (09:18)
[2017-06-22] MEDS ORDERED: SODIUM CHLORIDE 1,000 ML IV STA (09:18)
--- NOTE | 2017-06-22 09:24 | PDOC ---
History of Present Illness - General Chief Complaint: Pain Stated Complaint: REVISIT/ ABD PAIN Time Seen by Provider: 06/22/17 09:04 History Source: Patient - History of Present Illness Timing/Duration: reports: getting worse Quality: reports: severe Abdominal Pain Onset Location: reports: RUQ, epigastric Pain Radiation: reports: back Past History - Past Medical History Allergies/Adverse Reactions: Allergies Allergy/AdvReac Type Severity Reaction Status Date / Time No Known Allergies Allergy Verified 06/22/17 08:28 Home Medications: Ambulatory Orders metFORMIN HCL [Glucophage] 1,000 mg PO BID 03/14/12 Glipizide 10 mg PO DAILY 06/29/15 Amlodipine Besylate 5 mg PO DAILY 01/19/17 Sitagliptin Phosphate [Januvia] 100 mg PO DAILY 01/19/17 Famotidine [Pepcid -] 40 mg PO DAILY #14 tablet 06/20/17 Acetaminophen [Tylenol] 2 tab PO Q6H #20 tablet 06/22/17 COPD: No Diabetes: Yes HTN: Yes - Surgical History Abdominal Surgery: Yes (HERNIA, tubal ligation) Cholecystectomy: Yes - Immunization History Immunization Up to Date: Yes - Suicide/Smoking/Psychosocial Hx Smoking Status: No Smoking History: Current every day smoker Have you smoked in the past 12 months: Yes Number of Cigarettes Smoked Daily: 10 Information on smoking cessation initiated: No 'Breaking Loose' booklet given: 01/19/17 Hx Alcohol Use: Yes (occassionally.) Drug/Substance Use Hx: No Substance Use Type: Alcohol Hx Substance Use Treatment: No Review of Systems - Review of Systems Constitutional: No: Chills, Fever, Unexplained wgt Loss ABD/GI: Yes: Nausea, Abdominal cramping. No: Constipated, Diarrhea, Vomiting : No: Dysuria, Flank Pain, Hematuria *Physical Exam - Vital Signs Last Vital Signs Temp Pulse Resp BP Pulse Ox 98.5 F 84 18 148/92 99 06/22/17 08:25 06/22/17 08:25 06/22/17 08:25 06/22/17 08:25 06/22/17 08:25 - Physical Exam General Appearance: Yes: Appropriately Dressed. No: Apparent Distress HEENT: positive: Normal Voice Neck: positive: Supple Respiratory/Chest: positive: Lungs Clear, Normal Breath Sounds. negative: Respiratory Distress Cardiovascular: positive: Regular Rate, S1, S2 Gastrointestinal/Abdominal: positive: Normal Bowel Sounds, Tender (to epigastrium and RUQ), Soft. negative: Distended, Guarding, Rebound Musculoskeletal: negative: CVA Tenderness Integumentary: positive: Dry, Warm Neurologic: positive: Fully Oriented, Alert, Normal Mood/Affect ED Treatment Course - LABORATORY CBC & Chemistry Diagram: 06/22/17 09:58 06/22/17 09:58 - RADIOLOGY Radiology Studies Ordered: Category Date Time Status ABDOMEN US -LIMITED [US] Stat Ultrasound 06/22/17 09:14 Ordered Medical Decision Making - Medical Decision Making 06/22/17 09:19 52-year-old female, history of ate-[id number]-[id number] diabetes, hypertension, status post maxwell remotely, possible GERD, here with worsening upper abdominal pain radiating to back 6 days. States pain worse with food. + nausea, no vomiting, change in bowel movements, melena, bright red blood per rectum, fever or chills. Patient was seen in ED 3 days ago for same. Was given Pepcid and Maalox in ED with improvement in symptoms and sent home on same, but states meds is not relieving symptoms at home. Labs were unremarkable on prior ED visit. Patient states she developed these symptoms for the first time last year and was seen by her PMD who diagnosed her with possible GERD. States she was given medication, does not remember name, but states it never worked for her symptoms. Has not seen a foam gun operator or had an endoscopy per patient. No unexplained weight loss. States that Aleve is usually her drug of choice for various aches and pain at home. Denies excessive alcohol use or prior history of pancreatitis See exam Possible GERD/gastritis, less likely pancreatitis or cholecodolithiasis, unlikely ACS On pepcid/maalox w/ no relief Neg lab in ED 3 days ago No scope in pact S/p maxwell remotely Stable w/ ttp to epigastrium/RUQ on exam -pain control -rpt labs -US today -ekg -reassess 06/22/17 11:47 Labs unremarkable. Ultrasound negative for intrahepatic dilatation, but shows hepatomegaly w/ fatty infiltration which could possibly be causing patient's symptoms. Patient continues to complain of some epigastric pain. Will continue to manage pain. EKG in progress. Will contact PMD to discuss GI/ referral/out-pt management as d/w ED attg 06/22/17 13:39 EKG with low voltage and Q's in precordial leads, as reviewed with Dr. Castorena. Do not think patient's symptoms are cardiac in origin at this point given description, i.e worsening after food, etc. ED attending agrees with discharge to follow-up with Dr. Julian of GI. Per reports significant improvement with pain meds and stable for discharge at this time. Reasons to return to ED discussed with patient 06/22/17 13:42 *DC/Admit/Observation/Transfer Diagnosis at time of Disposition: Epigastric pain - Discharge Dispostion Disposition: HOME Condition at time of disposition: Improved - Prescriptions Prescriptions: Acetaminophen [Tylenol] 2 tab PO Q6H #20 tablet - Referrals Referrals: Key Romero MD [Primary Care Provider] - Lex Julian MD [Staff Physician] - - Patient Instructions Additional Instructions: Ultrasound shows mild swelling of your liver. Please take tylenol very infrequently for your pain as was discussed with you in ED. Please follow-up with Dr. Julian of GI next week. Return to ER if symptoms worsen - Post Discharge Activity Forms/Work/School Notes: Back to Work
[2017-06-22] MEDS ORDERED: FAMOTIDINE 20 MG/50 ML IVPB 20 MG/50 ML MG IVPB ONE (09:54)
--- NOTE | 2017-06-22 09:59 | PDOC ---
*Physical Exam - Vital Signs Last Vital Signs Temp Pulse Resp BP Pulse Ox 98.5 F 84 18 148/92 99 06/22/17 08:25 06/22/17 08:25 06/22/17 08:25 06/22/17 08:25 06/22/17 08:25 <Kareem Camacho - Last Filed: 06/22/17 13:16> - Vital Signs Last Vital Signs Temp Pulse Resp BP Pulse Ox 98.5 F 84 18 148/92 99 06/22/17 08:25 06/22/17 08:25 06/22/17 08:25 06/22/17 08:25 06/22/17 08:25 - Physical Exam Comments: 06/22/17 09:59 The patient was examined by [SANDY Reis] under my direct supervision. I personally evaluated the patient. I concur with the above findings and the plan of care. 06/22/17 13:55 Patient is a morbidly obese 52-year-old female who presents with atraumatic right upper quadrant and epigastric pain with postprandial bloating and burning. In the ED, patient is awake and alert, with mild right upper quadrant and epigastric discomfort on deep palpation. There is no guarding or rebound. EKG shows no evidence of acute ischemia, low-voltage QRS is noted throughout, Q waves noted in V1 through V3 when compared to previous from 2013. I do not suspect the patient's current symptoms are related to ACS. EKG findings are likely chronic in nature. Patient will require follow-up with GI for evaluation of fatty liver as well as possible gastritis. Will discharge with outpatient follow-up. <Quentin Castorena - Last Filed: 06/22/17 13:56> ED Treatment Course - LABORATORY CBC & Chemistry Diagram: 06/22/17 09:58 06/22/17 09:58 - ADDITIONAL ORDERS Additional order review: Laboratory Results 06/22/17 06/22/17 09:58 09:58 Sodium 138 Potassium 4.9 Chloride 102 Carbon Dioxide 25 Anion Gap 11 BUN 16 Creatinine 0.8 Creat Clearance w eGFR > 60 Random Glucose 203 H Calcium 8.9 Total Bilirubin 0.5 D AST 14 L ALT 28 Alkaline Phosphatase 88 Total Protein 7.1 Albumin 3.4 Lipase 140 Urine Color Yellow Urine Appearance Slcloudy Urine pH 5.0 Ur Specific [place] 1.024 Urine Protein 1+ H Urine Glucose (UA) 2+ H Urine Ketones Trace H Urine Blood 1+ H Urine Nitrite Negative Urine Bilirubin Negative Urine Urobilinogen Negative Ur Leukocyte Esterase 2+ H Urine WBC (Auto) 2 Urine RBC (Auto) 7 Ur Epithelial Cells Moderate Hyaline Casts 2 Urine Mucus Few 06/22/17 09:58 RBC 4.86 MCV 77.9 L MCHC 33.2 RDW 15.3 MPV 6.7 L Neutrophils % 66.2 D Lymphocytes % 24.5 D Monocytes % 6.9 Eosinophils % 2.0 Basophils % 0.4 - Medications Given in the ED: ED Medications Discontinued Medications Generic Name Dose Route Start Last Admin Trade Name Freq PRN Reason Stop Dose Admin Famotidine 20 mg in 12 mls @ 144 mls/hr 06/22/17 09:17 06/22/17 09:57 Pepcid 20 Mg/12 Ml Push IVPUSH 06/22/17 09:21 144 mls/hr ONCE ONE Administration Sodium Chloride 1,000 mls @ 1,000 mls/hr 06/22/17 09:18 06/22/17 09:58 Normal Saline - IV 06/22/17 10:17 1,000 mls/hr ASDIR STA Administration Ketorolac Tromethamine 30 mg 06/22/17 11:47 06/22/17 12:45 Toradol Injection - IVPUSH 06/22/17 11:48 Not Given ONCE ONE Sucralfate 1 gm 06/22/17 09:18 06/22/17 10:05 Carafate - PO 06/22/17 09:19 1 gm ONCE ONE Administration Tramadol HCl 50 mg 06/22/17 11:47 06/22/17 12:31 Ultram - PO 06/22/17 11:48 50 mg ONCE ONE Administration <Kareem Camacho - Last Filed: 06/22/17 13:16> - LABORATORY CBC & Chemistry Diagram: 06/22/17 09:58 06/22/17 09:58 - Medications Given in the ED: ED Medications Discontinued Medications Generic Name Dose Route Start Last Admin Trade Name Freq PRN Reason Stop Dose Admin Famotidine 20 mg in 12 mls @ 144 mls/hr 06/22/17 09:17 06/22/17 09:57 Pepcid 20 Mg/12 Ml Push IVPUSH 06/22/17 09:21 144 mls/hr ONCE ONE Administration <Quentin Castorena - Last Filed: 06/22/17 13:56> Medical Decision Making - Medical Decision Making 06/22/17 13:[address]Tina Dixon covering for Key Romero, awaiting call back. <Kareem Camacho - Last Filed: 06/22/17 13:16> *DC/Admit/Observation/Transfer <Kareem Camacho - Last Filed: 06/22/17 13:16> <Quentin Castorena - Last Filed: 06/22/17 13:56> Diagnosis at time of Disposition: Epigastric pain - Discharge Dispostion Disposition: HOME Condition at time of disposition: Improved - Prescriptions Prescriptions: Acetaminophen [Tylenol] 2 tab PO Q6H #20 tablet - Referrals Referrals: Lex Julian MD [Staff Physician] - Key Romero MD [Primary Care Provider] - - Patient Instructions Additional Instructions: Ultrasound shows mild swelling of your liver. Please take tylenol very infrequently for your pain as was discussed with you in ED. Please follow-up with Dr. Julian of GI next week. Return to ER if symptoms worsen - Post Discharge Activity Forms/Work/School Notes: Back to Work
[2017-06-22 10:11] LABS: BASO % 0.4 % (0-2.0); HEMATOCRIT 37.9 % (32.4-45.2); HEMOGLOBIN 12.6 GM/dL (10.7-15.3); LYMPH % 24.5 % (8-40); MCH 25.8 pg (25.7-33.7); MCHC 33.2 g/dl (32.0-36.0); MEAN CELL VOLUME 77.9 fl (80-96); MEAN PLT VOLUME 6.7 fl (7.5-11.1); MONO % 6.9 % (3.8-10.2); NEUT % 66.2 % (42.8-82.8); PLATELET COUNT 343 K/MM3 (134-434); RBC 4.86 M/mm3 (3.60-5.2); RDW 15.3 % (11.6-15.6); WHITE BLOOD COUNT 8.6 K/mm3 (4.0-10.0)
[2017-06-22 10:23] LABS: URINE APPEARANCE SLCLOUDY; URINE BILIRUBIN NEGATIVE (NEGATIVE); URINE BLOOD 1+ (NEGATIVE); URINE COLOR YELLOW; URINE GLUCOSE (UA) 2+ (NEGATIVE); URINE KETONE TRACE (NEGATIVE); URINE NITRITE NEGATIVE (NEGATIVE); URINE UROBILINOGEN NEGATIVE mg/dL (0.2-1.0)
[2017-06-22 10:29] LABS: URINE LEUK ESTERASE 2+ (NEGATIVE); URINE PROTEIN 1+ (NEGATIVE)
[2017-06-22 10:43] LABS: ALBUMIN 3.4 g/dl (3.4-5.0); ANION GAP 11 (8-16); BILIRUBIN,TOTAL 0.5 mg/dL (0.2-1.0); BLOOD UREA NITROGEN 16 mg/dL (7-18); CALCIUM 8.9 mg/dL (8.5-10.1); CHLORIDE 102 mmol/L (98-107); CO2 25 mmol/L (21-32); CREATININE 0.8 mg/dL (0.55-1.02); GLUCOSE,RANDOM 203 mg/dL (74-106); LIPASE 140 U/L (73-393); POTASSIUM 4.9 mmol/L (3.5-5.1); SGOT/AST 14 U/L (15-37); SGPT/ALT 28 U/L (12-78); SODIUM 138 mmol/L (136-145); TOT PROT 7.1 g/dl (6.4-8.2)
[2017-06-22 10:44] LABS: ALK PHOS 88 U/L (45-117)
[2017-06-22 10:53] LABS: EPI CELLS MODERATE /HPF (FEW); URINE HYALINE CAST 2 /lpf; URINE MUCUS FEW
[2017-06-22] MEDS ORDERED: traMADol HCL 50 MG TABLET PO ONE (11:47)
[2017-06-22] MEDS ORDERED: KETOROLAC TROMETHAMINE 30 MG/1 ML VIAL IVPUSH ONE (11:47)
[2017-06-22] MEDS ORDERED: traMADol HCL 50 MG TABLET ONE (12:24)
[2017-06-22 13:46] VITALS: TEMP 98
[2017-06-22 14:03] VITALS: BP 129/76; PULSE 80
--- NOTE | 2017-06-22 16:02 | EKG ---
Test Reason : Blood Pressure : / mmHG Vent. Rate : 089 BPM Atrial Rate : 089 BPM P-R Int : 142 ms QRS Dur : 082 ms QT Int : 372 ms P-R-T Axes : 061 034 041 degrees QTc Int : 452 ms NORMAL SINUS RHYTHM LOW VOLTAGE QRS SEPTAL INFARCT (CITED ON OR BEFORE 22-JUN-2017) ABNORMAL ECG WHEN COMPARED WITH ECG OF 07-JAN-2014 18:12, NO SIGNIFICANT CHANGE WAS FOUND Confirmed by BREANNA LEE MD ([id number]) on 06/22/2017 4:01:52 PM Referred By: Confirmed By:BREANNA LEE MD
== END 2017-06-22 14:03 | disposition home or self-care (01) ==
LOC: JER 08:14 → SUPCPDRO 08:14 → JER 14:03
PROC: 3E033GC Introduction of Other Therapeutic Substance into Peripheral Vein, Percutaneous Approach (ICD-10-PCS; principal; 2017-06-22)
PROC: 3E0337Z Introduction of Electrolytic and Water Balance Substance into Peripheral Vein, Percutaneous Approach (ICD-10-PCS; 2017-06-22)
DX: R10.13 Epigastric pain (principal)
CPT/HCPCS: 36415; 76705-TC; 80053; 81003; 81015; 83690; 85025; 93005; 93010; 99284-25; J7030

== ENCOUNTER 2017-09-07 10:09 | Day surgery (SDC) | payer OTHER ==
[2017-09-06 08:02] VITALS: BMI 43.0
[2017-09-07] MEDS ORDERED: MIDAZOLAM HCL 2 MG/2 ML SINGLE DOSE VIAL ONE ×2 (14:42→14:58)
[2017-09-07] MEDS ORDERED: PROPOFOL 20 ML ONE ×2 (14:42→15:21)
[2017-09-07] MEDS ORDERED: LIDOCAINE HCL 1%, 10 MG/ML (20ML VIAL) ONE (14:46)
[2017-09-07] MEDS ORDERED: BUPIVACAINE HCL/PF 0.5% (5MG/ML) 10 ML VIAL ONE (14:46)
[2017-09-07] MEDS ORDERED: LIDOCAINE HCL 1%, 10 MG/ML (50 mL VIAL) IJ ONE (14:57)
[2017-09-07] MEDS ORDERED: ceFAZolin SODIUM 1 GM VIAL ONE (15:07)
[2017-09-07] MEDS ORDERED: ceFAZolin SODIUM 1 GM VIAL IVPB ONE (15:09)
--- NOTE | 2017-09-07 15:28 | HP ---
Satellite [facility] - Chief Complaint Chief Complaint: left hand pain - Past Medical History Allergies/Adverse Reactions: Allergies Allergy/AdvReac Type Severity Reaction Status Date / Time No Known Allergies Allergy Verified 09/07/17 11:50 ...LMP Comment: 2015 - Current Medications Current Medications: Home Medications Medication Instructions Recorded metFORMIN HCL [Glucophage] 1,000 mg PO BID 03/14/12 Glipizide 10 mg PO BID 06/29/15 Amlodipine Besylate 5 mg PO DAILY 01/19/17 Sitagliptin Phosphate [Januvia] 100 mg PO DAILY 01/19/17 Famotidine [Pepcid -] 40 mg PO DAILY #14 tablet 06/20/17 Acetaminophen [Tylenol] 2 tab PO Q6H #20 tablet 06/22/17 Biotin 1 mg PO DAILY 09/06/17 Cyanocobalamin [Vitamin B12 -] 1,000 mcg PO DAILY 09/06/17 Folic Acid 1 mg PO DAILY 09/06/17 Hydrocodone/Acetaminophen [[place] 1 each PO Q6H PRN #20 tablet MDD 4 09/07/17 5-325 Tablet] Satellite Physical Exam - Physical Examination Vital Signs: Vital Signs Period Temp Pulse Resp BP Sys/Rawls Pulse Ox Last 24 Hr 98.0 F 85 20 107/60 100 General Appearance: Well Nourished, Well Developed, Alert & Oriented x3 ENT: Clear Lung: Normal air movement Heart: Regular rate & rhythm Extremities: Other (left hand- + ttp, decr rom, nvi emg + cts) Neurological: Intact, Alert, Oriented Satellite Impression/Plan - Impression/Plan Impression: left cts Operative Procedure: left ctr Date to be Performed: 09/07/17
--- NOTE | 2017-09-07 15:29 | OP ---
Operative Note - Note: Operative Date: 09/07/17 ([facility]) Pre-Operative Diagnosis: left cts Operation: left ctr Post-Operative Diagnosis: Same as Pre-op Surgeon: Kevin Soria Anesthesiologist/FOREIGN LANGUAGE PROFESSOR: Satnam Caruso Anesthesia: Local, MAC Specimens Removed: tenosynovium Estimated Blood Loss (mls): 0 (tourniquet) Operative Report Dictated: Yes
[2017-09-07] MEDS ORDERED: BUPIVACAINE HCL/PF 0.5% (5MG/ML) 10 ML VIAL IJ ONE (15:47)
--- NOTE | 2017-09-07 17:08 | OP ---
DATE OF OPERATION: 09/07/2017 PREOPERATIVE DIAGNOSIS: Left carpal tunnel syndrome. POSTOPERATIVE DIAGNOSIS: Left carpal tunnel syndrome. PROCEDURE: Left carpal tunnel release and tenosynovectomy. SURGEON: Kevin Soria M.D. COW WASHER: None. ANESTHESIOLOGIST: Satnam Caruso M.D. ANESTHESIA: MAC anesthesia, local injection of 12 mL 0.5% Marcaine, 1% lidocaine mix. DRAINS: None. COMPLICATIONS: None. SPECIMEN: Tenosynovium left wrist. BLOOD LOSS: None. BLOOD GIVEN: None. FLUID REPLACEMENT: 300 mL Plasmalyte. INDICATION: The patient is a 52-year-old female. After understanding the potential risks, complications, alternatives, benefits to surgery versus nonsurgical treatment, the patient elected to pursue this procedure. DESCRIPTION OF PROCEDURE: The patient was brought to the operating room, peripheral IV placed and intravenous sedation was given. One gram of intravenous Ancef was given. MAC anesthesia was induced. A tourniquet was applied to the left upper arm and the left upper extremity was prepped and draped in sterile fashion. The entire case was done under 3.8 loupe magnification. A marking pen was utilized to mildred out a longitudinal incision in an already existing skin crease. Twenty mL of 0.5% Marcaine mixed with 1% Lidocaine was injected in and around the surgical incision. The left upper extremity was elevated, exsanguinated with an Esmarch bandage and the tourniquet inflated to 250 mmHg. A No. 15 scalpel blade was utilized to cut down through the skin. Subcutaneous hemostasis was achieved with the bipolar cautery. Dissection was done through the superficial palmar fascia. Self-retaining retractors were placed into the wound. Under direct visualization, the transverse carpal ligament was transected with a No. 15 scalpel blade, exposing the median nerve and the contents of the carpal tunnel. The distal and proximal extents of the release were completed with a littler scissor and checked with irrigation and my small finger. They were seen to be complete. Limited dissection was done on the radial side of the median nerve and more extensive dissection was done on the ulnar side of the median nerve. The patients nerve was seen to be quite compressed by epineurium and therefore a limited epineurotomy was performed. A Ragnell retractor was used to gently retract the median nerve in a radial direction. The patient had a lot of tenosynovitis and therefore a tenosynovectomy was performed off all 9 flexor tendons. This was passed off the field as tenosynovium left wrist. The floor of the carpal tunnel was checked. There were no abnormal masses or ganglion cysts. The area was copiously irrigated and washed out and closure begun. Undyed 4-0 Vicryl was used to close the deep dermal layer. Final skin reapproximation was done with horizontal mattress 4-0 nylon sutures. The area was then washed and dried, covered with Xeroform, 4x4s, fluffs between the fingers, Webril and a 4-inch plaster roll was utilized to make a volar splint, which was then wrapped with Fani and Coban. The tourniquet was taken down after a total tourniquet time of 15 minutes. There were no complications during the case. The patient tolerated the procedure well and was brought to the ambulatory recovery room in stable condition. Coleen [id number]
[2017-09-07 17:48] VITALS: BP 123/70; PULSE 79; TEMP 98.2
--- NOTE | 2017-09-09 13:14 | PATH ---
Surgical Pathology Report Patient Name: POLLO COPELAND [facility]. Rec. #: [id number] /Age/Gender: 1965 (Age: 52) / F Account: [id number] Location: [facility] SURGICAL Taken: 09/07/2017 Received: 09/08/2017 Reported: 09/09/2017 Physicians: Kevin Soria M.D. Specimen(s) Received TENOSYNOVIAL FLUID Clinical History Carpal tunnel syndrome Final Diagnosis TENOSYNOVIAL FLUID: FIBROCONNECTIVE TISSUE WITH FIBROSIS. Electronically Signed Mylene Joseph M.D. Gross Description Received in formalin labeled "tenosynovial fluid," is a 1.5 x 1.0 x 0.2 cm aggregate of clarke-yellow, irregular portions of soft tissue, consistent with tenosynovium. The specimen is entirely submitted in one cassette. /09/08/201709/08/2017
== END 2017-09-07 17:40 | disposition home or self-care (01) ==
LOC: JASU-SURG 10:09
PROVIDERS: ATTEND Orthopaedic Surgery
PROC: 01N50ZZ Release Median Nerve, Open Approach (ICD-10-PCS; principal; 2017-09-07 12:00)
DX: G56.02 Carpal tunnel syndrome, left upper limb (principal)
CPT/HCPCS: 82962; 88304-TC

== ENCOUNTER 2017-12-28 11:17 | Emergency (ER) | payer OTHER ==
[2017-12-28 11:21] VITALS: BP 109/79; PULSE 90; TEMP 98.1; BMI 43.5
[2017-12-28] MEDS ORDERED: KETOROLAC TROMETHAMINE 60 MG/2 ML VIAL IM ONE (11:44)
[2017-12-28] MEDS ORDERED: KETOROLAC TROMETHAMINE 60 MG/2 ML VIAL ONE (11:53)
[2017-12-28] MEDS ORDERED: ACETAMINOPHEN 1000 MG/100 ML VIAL (NON FORMULARY) IVPB ONE (12:20)
--- NOTE | 2017-12-28 12:28 | PDOC ---
History of Present Illness - General Chief Complaint: Back Pain Stated Complaint: BACK PAIN Time Seen by Provider: 12/28/17 11:33 - History of Present Illness Initial Comments: 52-year-old female with lower back pain and mid back pain going on for the last few weeks with an increasing pain today without any precipitating traumatic event. She denies radicular symptoms or loss of bowel or bladder function. She points to the mid back as the area of her discomfort. 12/28/17 12:24 Past History - Past Medical History Allergies/Adverse Reactions: Allergies Allergy/AdvReac Type Severity Reaction Status Date / Time No Known Allergies Allergy Verified 12/28/17 11:21 Home Medications: Ambulatory Orders metFORMIN HCL [Glucophage] 1,000 mg PO BID 03/14/12 Glipizide 10 mg PO BID 06/29/15 Amlodipine Besylate 5 mg PO DAILY 01/19/17 Sitagliptin Phosphate [Januvia] 100 mg PO DAILY 01/19/17 Biotin 1 mg PO DAILY 09/06/17 Cyanocobalamin [Vitamin B12 -] 1,000 mcg PO DAILY 09/06/17 Folic Acid 1 mg PO DAILY 09/06/17 Anemia: No Asthma: No Cancer: No Cardiac Disorders: No CVA: No COPD: No CHF: No Dementia: No Diabetes: Yes GI Disorders: No Disorders: No HTN: Yes Hypercholesterolemia: No Liver Disease: No Seizures: No Thyroid Disease: No - Surgical History Abdominal Surgery: Yes (HERNIA, tubal ligation) Cholecystectomy: Yes - Immunization History Immunization Up to Date: Yes - Suicide/Smoking/Psychosocial Hx Smoking Status: No Smoking History: Never smoked Have you smoked in the past 12 months: Yes Number of Cigarettes Smoked Daily: 10 Information on smoking cessation initiated: No 'Breaking Loose' booklet given: 01/19/17 Hx Alcohol Use: Yes (occassionally.) Drug/Substance Use Hx: No Substance Use Type: Alcohol Hx Substance Use Treatment: No Review of Systems - Review of Systems Musculoskeletal: Yes: See HPI, Back Pain All Other Systems: Reviewed and Negative *Physical Exam - Vital Signs Last Vital Signs Temp Pulse Resp BP Pulse Ox 98.1 F 90 18 109/79 96 12/28/17 11:19 12/28/17 11:19 12/28/17 11:19 12/28/17 11:19 09/19/18 11:19 - Physical Exam Comments: Rectal lumbar spine skin color and temperature are normal range of motion is slightly decreased. She has tenderness which seems out of proportion to the examination about her thoracic or lumbar musculature. No palpable spasm. 5 out of 5 strength in bilateral upper and lower extremities. No gross sensorimotor deficits. She is neurovascularly intact. 12/28/17 12:27 ED Treatment Course - Medications Given in the ED: ED Medications Discontinued Medications Generic Name Dose Route Start Last Admin Trade Name Mirela PRN Reason Stop Dose Admin Ketorolac Tromethamine 60 mg 12/28/17 11:44 12/28/17 11:59 Toradol Injection - IM 12/28/17 11:45 60 mg ONCE ONE Administration Medical Decision Making - Medical Decision Making 12/28/17 12:57 There was a minimal relief from Toradol IV ofirmev help with her back pain *DC/Admit/Observation/Transfer Diagnosis at time of Disposition: Back pain - Discharge Dispostion Disposition: HOME Condition at time of disposition: Improved Decision to Admit order: No - Referrals Referrals: Key Romero MD [Primary Care Provider] - Rodolfo Wesley MD [Staff Physician] - - Patient Instructions Printed Discharge Instructions: Low Back Pain, DI for Thoracic Back Pain Additional Instructions: Return to the emergency room should symptoms worsen or go unresolved area please follow-up with spine surgery for further evaluation and treatment options in 1-2 days. Sinew to take your other medications as scheduled follow- up with spine surgery for further evaluation and treatment options. - Post Discharge Activity
[2017-12-28] MEDS ORDERED: ACETAMINOPHEN INJECTION 100 ML IVPB ONE (12:36)
== END 2017-12-28 13:23 | disposition home or self-care (01) ==
LOC: JERFT 11:17
PROC: 3E033NZ Introduction of Analgesics, Hypnotics, Sedatives into Peripheral Vein, Percutaneous Approach (ICD-10-PCS; principal; 2017-12-28)
PROC: 3E0233Z Introduction of Anti-inflammatory into Muscle, Percutaneous Approach (ICD-10-PCS; 2017-12-28)
DX: M54.9 Dorsalgia, unspecified (principal); I10 Essential (primary) hypertension; E11.9 Type 2 diabetes mellitus without complications; Z87.891 Personal history of nicotine dependence
CPT/HCPCS: 99281-25; J0131

== ENCOUNTER 2018-06-16 09:24 | Inpatient (IN) | payer OTHER ==
[2018-06-15 12:41] VITALS: BMI 44.4
[2018-06-16] MEDS ORDERED: ONDANSETRON 4 MG/2 ML VIAL IVPUSH PRN ×2 (09:55→13:15)
[2018-06-16] MEDS ORDERED: PNEUMOC 13-VAL CONJ-DIP CRM/PF 0.5 ML DISP.SYRIN IM ONE (10:12)
[2018-06-16] MEDS ORDERED: BUPIVACAINE HCL/PF 0.5% (5MG/ML) 10 ML VIAL ONE (10:48)
[2018-06-16] MEDS ORDERED: DEXAMETHASONE SOD PHOSPHATE 4 MG/1 ML VIAL ONE (11:01)
[2018-06-16] MEDS ORDERED: ROCURONIUM BROMIDE 50 MG/5 ML VIAL ONE ×2 (11:02→12:41)
[2018-06-16] MEDS ORDERED: PROPOFOL 20 ML ONE ×2 (11:02→12:42)
[2018-06-16] MEDS ORDERED: MIDAZOLAM HCL 2 MG/2 ML SINGLE DOSE VIAL ONE (11:02)
[2018-06-16] MEDS ORDERED: ceFAZolin SODIUM 1 GM VIAL ONE (11:02)
[2018-06-16] MEDS ORDERED: fentaNYL CITRATE 250 MCG/5 ML VIAL ONE (11:02)
[2018-06-16] MEDS ORDERED: ceFAZolin SODIUM 1 GM VIAL IVPB ONE (11:30)
[2018-06-16] MEDS ORDERED: BUPIVACAINE HCL/PF (5 MG/ML) 30 ML VIAL IJ ONE (12:08)
[2018-06-16] MEDS ORDERED: NEOSTIGMINE METHYLSULFATE 0.5 MG/ML - 10 ML MDV ONE (13:12)
[2018-06-16] MEDS ORDERED: MORPHINE SULFATE 2 MG/ML VIAL IVPUSH PRN (13:16)
--- NOTE | 2018-06-16 13:20 | OP ---
Operative Note - Note: Operative Date: 06/16/18 Pre-Operative Diagnosis: Morbid Obesity. Diabetes Mellitus. Hypertension Operation: Laparoscopic vertical sleeve gastrectomy. Laparoscopic Lysis of Adhesions. Diagnostic Laparoscopy Findings: Greater curve sleeve gastrectomy performed with #[address] Massive adhesions in RUQ and LUQ noted from previous surgery Post-Operative Diagnosis: Same as Pre-op (Abdominal Adhesions) Anesthesia: General Specimens Removed: Greater curve of stomach Estimated Blood Loss (mls): 30 Operative Report Dictated: Yes
[2018-06-16] MEDS ORDERED: ACETAMINOPHEN INJECTION 100 ML IVPB ONE (13:34)
[2018-06-16] MEDS ORDERED: FAMOTIDINE 20 MG/50 ML IVPB 20 MG/50 ML MG IVPB ONE (13:34)
[2018-06-16] MEDS ORDERED: METOCLOPRAMIDE HCL INJECTION 10 MG/2 ML VIAL ONE (13:34)
[2018-06-16] MEDS ORDERED: ONDANSETRON 4 MG/2 ML VIAL ONE (13:34)
[2018-06-16] MEDS: METOCLOPRAMIDE HCL INJECTION 10 MG/2 ML VIAL IVPUSH SCH ×3 (13:40→23:28)
[2018-06-16] MEDS ORDERED: FAMOTIDINE 20 MG PREMIXED IVPB IVPB ONE (14:00)
[2018-06-16 14:06] LABS: HEMATOCRIT 33.8 % (32.4-45.2); HEMOGLOBIN 11.4 GM/dL (10.7-15.3); MCH 26.1 pg (25.7-33.7); MCHC 33.7 g/dl (32.0-36.0); MEAN CELL VOLUME 77.6 fl (80-96); MEAN PLT VOLUME 6.7 fl (7.5-11.1); PLATELET COUNT 339 K/MM3 (134-434); RBC 4.36 M/mm3 (3.60-5.2); RDW 14.8 % (11.6-15.6)
[2018-06-16 14:27] LABS: ALBUMIN 3.1 g/dl (3.4-5.0); ALK PHOS 73 U/L (45-117); ANION GAP 5 MMOL/L (8-16); BILIRUBIN,TOTAL 0.2 mg/dL (0.2-1); BLOOD UREA NITROGEN 10 mg/dL (7-18); CALCIUM 8.5 mg/dL (8.5-10.1); CHLORIDE 108 mmol/L (98-107); CO2 26 mmol/L (21-32); GLUCOSE,RANDOM 190 mg/dL (74-106); SGOT/AST 150 U/L (15-37); SGPT/ALT 170 U/L (13-61); SODIUM 139 mmol/L (136-145); TOT PROT 6.9 g/dl (6.4-8.2)
[2018-06-16] MEDS: SODIUM CHLORIDE 1,000 ML IV SCH ×2 (15:12→23:29)
--- NOTE | 2018-06-16 15:44 | OP ---
DATE OF OPERATION: 06/16/2018 SURGEON: Samuel Galvan M.D. PREOPERATIVE DIAGNOSIS: Evaluate for leak and/or obstruction status post vertical sleeve gastrectomy by Dr. Uli Gilmore. POSTOPERATIVE DIAGNOSIS: No leak and/or obstruction. PROCEDURE: Esophagogastroduodenoscopy/upper endoscopy. SPECIMEN: None. ESTIMATED BLOOD LOSS: 0 mL DRAINS: None ANESTHESIA: GT REASON FOR PROCEDURE: This is a 53-year-old female who is undergoing laparoscopic vertical sleeve gastrectomy by Dr. Uli Gilmore. To evaluate for leak and/or obstruction; an upper endoscopy was required. DESCRIPTION OF PROCEDURE: The endoscope was placed in the patient's mouth, oral cavity, esophagus, GE junction, gastric pouch/sleeve, and up to and below the level of the pylorus. No leak and/or obstruction was noticed. The endoscope removed. Patient tolerated procedure well. The remainder of the laparoscopic vertical sleeve gastrectomy was continued by Dr. Uli Gilmore. SAMUEL GALVAN M.D. [id number] MTDD
--- NOTE | 2018-06-16 16:08 | OP ---
DATE OF OPERATION: 06/16/2018 PREOPERATIVE DIAGNOSES: 1. Morbid obesity. 2. Diabetes mellitus. 3. Hypertension. POSTOPERATIVE DIAGNOSES: 1. Morbid obesity. 2. Diabetes mellitus. 3. Hypertension. 4. Abdominal adhesions. PROCEDURES PERFORMED: 1. Laparoscopic vertical sleeve gastrectomy. 2. Laparoscopic lysis of adhesions. 3. Diagnostic laparoscopy. OPERATING SURGEON: Uli Gilmore MD DRAFTER: Gary Galvan MD ANESTHESIA: General. OPERATIVE PROCEDURE: The patient was brought into the operating room and placed on the OR table in the supine position. All precautions were taken initially, including padding for the back and the feet, and Venodyne boots were placed on both lower extremities. At that point, the abdomen was prepped and draped in the usual manner. A Veress needle was placed in the left upper quadrant and a pneumoperitoneum was established. Under direct vision, a number-5 bladeless trocar was placed with the laparoscopic camera to the abdominal cavity. Once this was placed, the camera was then placed in the abdominal cavity. There was noted to be a large amount of adhesions in the left upper quadrant in the midline and the right upper quadrant from the patient's previous hernia surgery. These adhesions made it difficult for visualization and to place further ports. At this juncture, a number-5 bladeless trocar was placed in the left costal margin. Using that as the camera port, a scissors was then utilized and the LigaSure device was used to dissect the adhesions between the omentum and the anterior abdominal wall and the left upper quadrant. This was done until the adhesions were completely removed and the stomach was visualized. However, there were adhesions in the midline and right upper quadrant that needed to be removed in order to place further ports. The first portion of these adhesions was attached between the omentum and the liver and these were dissected with the LigaSure and with blunt dissection until it was mostly free. At this juncture, a number-15 bladeless trocar was placed in the supraumbilical position in the midline. Further lysis of adhesions in the right upper quadrant was done, and this was extensive and tedious and time consuming, but it was done in a safe manner. This was done until some clearing was made where the right upper quadrant abdominal wall could be seen and a number-5 bladeless trocar was now placed in the right upper quadrant. A Bienvenido liver retractor was placed in the epigastrium to retract the left lobe of the liver. The patient was then placed in a 20-degree reverse Trendelenburg position by Anesthesia. The pylorus was noted in the stomach and from there 6 cm was measured proximally on the greater curve. Here, the operating surgeon lifted the stomach toward the anterior abdominal wall, while the home care assistant surgeon retracted the gastrocolic ligament inferiorly. The LigaSure device was used to dissect the gastrocolic ligament and then the short gastric vessels off the greater curve of the stomach. This continued in a superior and vertical direction until the final short gastric vessel between the superior pole, spleen and proximal fundus was divided. At this juncture, Anesthesia advanced a number-40 bougie. With the bougie held along the lesser curve, a series of flo was performed with the first two being black load flo 6 cm in length along the bougie. This was followed by a series of purple load flo also 6 cm in length and also hugging the bougie. This was done until the final staple was fired and the greater curve was now completely detached from the lesser curve. It should be noted that prior to firing a staple, both the anterior and posterior aguirre were checked that they were intact and in the area of the esophagogastric junction approximately 1.5 cm of serosa remained on the anterior and posterior surfaces. At this juncture, Dr. Galvan scrubbed out of the case and performed an upper endoscopy. The details of the procedure are described in his operative note, but essentially it showed that there was no leakage from the staple line and no obstruction as he was able to advance all the way down to the pylorus. At this juncture, the resected greater curve was removed from the number-15 trocar site and sent off the field as specimen to Pathology. Under direct vision, all trocars were removed and pneumoperitoneum released. All trocar sites then received 0.25% Marcaine and were closed with 4-0 Biosyn in subcuticular fashion. The number-15 trocar site was first closed with 3-0 Vicryl on the subcutaneous tissue followed by 4-0 Biosyn in subcuticular fashion. Dressings were applied. The patient awoken from anesthesia and transferred out of the operating room to the recovery room in stable condition. ESTIMATED BLOOD LOSS: 30 mL. Coleen [id number]
[2018-06-16] MEDS: LACTATED RINGERS SOLUTION 1,000 ML IV SCH (16:25)
[2018-06-16] MEDS: ACETAMINOPHEN 1000 MG/100 ML VIAL (NON FORMULARY) IVPB SCH ×2 (16:49→23:29)
[2018-06-16] MEDS: ENOXAPARIN NA (PORCINE) 40 MG/0.4 ML DISP.SYRIN SQ SCH (23:28)
[2018-06-16] MEDS: FAMOTIDINE 20 MG/50 ML IVPB 20 MG/50 ML MG IVPB SCH (23:28)
[2018-06-17] MEDS ORDERED: PT OWN MED DRAWER 7, Y5N ONE (02:02)
[2018-06-17] MEDS: METOCLOPRAMIDE HCL INJECTION 10 MG/2 ML VIAL IVPUSH SCH ×4 (02:50→21:14)
[2018-06-17] MEDS: ACETAMINOPHEN 1000 MG/100 ML VIAL (NON FORMULARY) IVPB SCH ×2 (02:50→09:10)
[2018-06-17 06:15] LABS: HEMATOCRIT 32.6 % (32.4-45.2); MCH 26.3 pg (25.7-33.7); MCHC 33.9 g/dl (32.0-36.0); MEAN CELL VOLUME 77.6 fl (80-96); MEAN PLT VOLUME 6.4 fl (7.5-11.1); PLATELET COUNT 360 K/MM3 (134-434); RDW 14.9 % (11.6-15.6); WHITE BLOOD COUNT 8.9 K/mm3 (4.0-10.0)
[2018-06-17 06:44] LABS: ALK PHOS 73 U/L (45-117); ANION GAP 6 MMOL/L (8-16); BILIRUBIN,TOTAL 0.4 mg/dL (0.2-1); BLOOD UREA NITROGEN 12 mg/dL (7-18); CALCIUM 8.4 mg/dL (8.5-10.1); CHLORIDE 109 mmol/L (98-107); CO2 24 mmol/L (21-32); CREATININE 0.7 mg/dL (0.55-1.3); GLUCOSE,RANDOM 198 mg/dL (74-106); POTASSIUM 4.1 mmol/L (3.5-5.1); SGOT/AST 113 U/L (15-37); SGPT/ALT 171 U/L (13-61); SODIUM 139 mmol/L (136-145); TOT PROT 6.3 g/dl (6.4-8.2)
[2018-06-17] MEDS: FAMOTIDINE 20 MG/50 ML IVPB 20 MG/50 ML MG IVPB SCH ×2 (09:04→21:15)
[2018-06-17] MEDS: ENOXAPARIN NA (PORCINE) 40 MG/0.4 ML DISP.SYRIN SQ SCH ×2 (09:06→21:14)
[2018-06-17] MEDS: LACTATED RINGERS SOLUTION 1,000 ML IV SCH (11:36)
--- NOTE | 2018-06-17 14:15 | PN ---
Progress Note (short form) - Note Progress Note: POD#1 Afebrile (Tmax-99.8 oral) P-110-114 Pt sitting in chair No N/V Minimal abdominal discomfort P/E-Abd- all trocar sites clean, dry UGI-no leak, no obstruction WBC-8.9 H/H-11.0/32.6 P- Begin PO clear liquids- 2 oz PO TID May have 1 cup of water/ice chips Q2H Moniter labs, V/S Encourage OOB-ambulate Cont DVT prophylaxis
[2018-06-17] MEDS ORDERED: ACETAMINOPHEN 325 MG TABLET (FP) PO PRN (14:16)
[2018-06-17] MEDS ORDERED: oxyCODONE HCL 5 MG TABLET PO PRN (14:16)
[2018-06-17] MEDS ORDERED: glipiZIDE 5 MG TABLET (FP) ONE (16:25)
[2018-06-17] MEDS: SODIUM CHLORIDE 1,000 ML IV SCH ×2 (16:52→21:15)
[2018-06-17] MEDS: amLODIPine BESYLATE 10 MG TABLET (FP) PO SCH (16:52)
[2018-06-17] MEDS: glipiZIDE 10 MG TABLET (FP) PO SCH (16:53)
[2018-06-17 19:22] LABS: HEMATOCRIT 31.9 % (32.4-45.2); HEMOGLOBIN 10.9 GM/dL (10.7-15.3); MCH 26.7 pg (25.7-33.7); MCHC 34.1 g/dl (32.0-36.0); MEAN CELL VOLUME 78.3 fl (80-96); MEAN PLT VOLUME 6.6 fl (7.5-11.1); PLATELET COUNT 328 K/MM3 (134-434); RBC 4.08 M/mm3 (3.60-5.2); RDW 14.7 % (11.6-15.6); WHITE BLOOD COUNT 11.2 K/mm3 (4.0-10.0)
[2018-06-17 19:29] LABS: ALK PHOS 72 U/L (45-117); ANION GAP 5 MMOL/L (8-16); BILIRUBIN,TOTAL 0.4 mg/dL (0.2-1); BLOOD UREA NITROGEN 11 mg/dL (7-18); CALCIUM 8.4 mg/dL (8.5-10.1); CHLORIDE 108 mmol/L (98-107); CO2 25 mmol/L (21-32); CREATININE 0.7 mg/dL (0.55-1.3); GLUCOSE,RANDOM 211 mg/dL (74-106); POTASSIUM 4.1 mmol/L (3.5-5.1); SGOT/AST 59 U/L (15-37); SGPT/ALT 142 U/L (13-61); SODIUM 138 mmol/L (136-145); TOT PROT 6.1 g/dl (6.4-8.2)
[2018-06-18] MEDS: METOCLOPRAMIDE HCL INJECTION 10 MG/2 ML VIAL IVPUSH SCH ×3 (03:04→17:28)
[2018-06-18] MEDS ORDERED: glipiZIDE 5 MG TABLET (FP) ONE (04:59)
[2018-06-18] MEDS: glipiZIDE 10 MG TABLET (FP) PO SCH ×2 (06:24→17:28)
[2018-06-18 07:31] LABS: HEMATOCRIT 32.1 % (32.4-45.2); HEMOGLOBIN 10.8 GM/dL (10.7-15.3); MCH 26.2 pg (25.7-33.7); MCHC 33.8 g/dl (32.0-36.0); MEAN CELL VOLUME 77.5 fl (80-96); MEAN PLT VOLUME 6.3 fl (7.5-11.1); PLATELET COUNT 315 K/MM3 (134-434); RBC 4.14 M/mm3 (3.60-5.2); RDW 14.7 % (11.6-15.6); WHITE BLOOD COUNT 8.6 K/mm3 (4.0-10.0)
[2018-06-18 07:57] LABS: ALBUMIN 3.1 g/dl (3.4-5.0); ALK PHOS 71 U/L (45-117); ANION GAP 6 MMOL/L (8-16); BILIRUBIN,TOTAL 0.4 mg/dL (0.2-1); BLOOD UREA NITROGEN 10 mg/dL (7-18); CALCIUM 8.3 mg/dL (8.5-10.1); CHLORIDE 108 mmol/L (98-107); CO2 26 mmol/L (21-32); CREATININE 0.6 mg/dL (0.55-1.3); GLUCOSE,RANDOM 132 mg/dL (74-106); POTASSIUM 3.9 mmol/L (3.5-5.1); SGOT/AST 39 U/L (15-37); SGPT/ALT 125 U/L (13-61); SODIUM 139 mmol/L (136-145); TOT PROT 6.2 g/dl (6.4-8.2)
[2018-06-18] MEDS: ENOXAPARIN NA (PORCINE) 40 MG/0.4 ML DISP.SYRIN SQ SCH (09:27)
[2018-06-18] MEDS: amLODIPine BESYLATE 10 MG TABLET (FP) PO SCH (09:28)
[2018-06-18] MEDS: FAMOTIDINE 20 MG/50 ML IVPB 20 MG/50 ML MG IVPB SCH (09:28)
[2018-06-18 18:20] VITALS: BP 142/82; PULSE 105; TEMP 99.5
--- NOTE | 2018-06-20 14:07 | PATH ---
Surgical Pathology Report Patient Name: POLLO COPELAND [facility]. Rec. #: [id number] /Age/Gender: 1965 (Age: 53) / F Account: [id number] Location: 4 PEDS/ADOL Taken: 06/16/2018 Received: 06/19/2018 Reported: 06/20/2018 Physicians: Uli Gilmore M.D. Specimen(s) Received GREATER CURVATURE STOMACH Clinical History Morbid obesity Final Diagnosis STOMACH, GREATER CURVATURE, LAPAROSCOPIC VERTICAL SLEEVE GASTRECTOMY: PORTION OF STOMACH WITH MILD CHRONIC GASTRITIS. IMMUNOHISTOCHEMICAL STAIN FOR H. PYLORI IS NEGATIVE. Electronically Signed Lindsey Moore M.D. Gross Description Received in formalin, labeled "greater curvature of stomach," is a 91 gram, 13.5 x 3.0 x 3.0 cm. portion of stomach with a stapled margin of resection. The serosa is clarke-barksdale with minimal attached fat. The mucosa is clarke-pink with normal folds. No mucosal masses are identified. Social Science Manager sections are submitted in one cassette. /06/19/2018 [facility] [place]06/19/2018
== END 2018-06-18 18:39 | disposition home or self-care (01) | DRG 621 ==
LOC: JSAMEDAYSX 09:24 → J4S 15:42
PROVIDERS: ADMIT Surgery; ATTEND Surgery
PROC: 0DNW4ZZ Release Peritoneum, Percutaneous Endoscopic Approach (ICD-10-PCS; 2018-06-16)
PROC: 0DJ08ZZ Inspection of Upper Intestinal Tract, Via Natural or Artificial Opening Endoscopic (ICD-10-PCS; 2018-06-16)
PROC: 0DB64Z3 Excision of Stomach, Percutaneous Endoscopic Approach, Vertical (ICD-10-PCS; principal; 2018-06-16 11:00)
DX: E66.01 Morbid (severe) obesity due to excess calories (principal); Z68.41 Body mass index [BMI] 40.0-44.9, adult; I10 Essential (primary) hypertension; E11.9 Type 2 diabetes mellitus without complications; K66.0 Peritoneal adhesions (postprocedural) (postinfection)
CPT/HCPCS: 36415; 74241-TC-FY; 80053; 82962; 85027; 86850; 86900; 86901; 88305-TC; 94760; J0131; J7030

== ENCOUNTER 2021-09-11 04:19 | Day surgery (SDC) | payer OTHER ==
[2021-08-13 12:09] VITALS: BMI 38.4
[~2021-09-11 04:19] MED LIST: BUPIVACAINE HCL/PF 0.5% (5MG/ML) 10 ML VIAL IJ ONE; LIDOCAINE HCL 1% PRESERVATIVE FREE - 30ML VIAL IJ ONE
[2021-09-11] MEDS ORDERED: BUPIVACAINE HCL/PF 0.5% (5MG/ML) 10 ML VIAL ONE (07:51)
[2021-09-11] MEDS ORDERED: BUPIVACAINE HCL/PF 0.5% (5MG/ML) 10 ML VIAL IJ ONE (15:44)
[2021-09-11 16:11] VITALS: TEMP 98.3
[2021-09-11 16:45] VITALS: BP 130/70; PULSE 80
== END 2021-09-11 16:45 | disposition home or self-care (01) ==
LOC: JASU-SURG 04:19
PROVIDERS: ATTEND Pain Medicine Pain Medicine
PROC: 3E0T33Z Introduction of Anti-inflammatory into Peripheral Nerves and Plexi, Percutaneous Approach (ICD-10-PCS; 2021-09-11)
PROC: 3E0T3BZ Introduction of Anesthetic Agent into Peripheral Nerves and Plexi, Percutaneous Approach (ICD-10-PCS; principal; 2021-09-11 16:30)
DX: M47.812 Spondylosis without myelopathy or radiculopathy, cervical region (principal)
CPT/HCPCS: 76000-TC-FY

== ENCOUNTER 2021-10-13 03:52 | Day surgery (SDC) | payer OTHER ==
[2021-10-07 18:22] VITALS: BMI 38.4
[2021-10-13] MEDS ORDERED: DEXAMETHASONE SOD PHOSPHATE 10 MG/1 ML VIAL ONE (08:05)
[2021-10-13] MEDS ORDERED: LIDOCAINE HCL/PF 1% SDV 5ML VIAL ONE (08:05)
[2021-10-13] MEDS ORDERED: SODIUM CHLORIDE 0.9% P/F 10 ML VIAL IJ ONE (08:10)
[2021-10-13] MEDS ORDERED: BUPIVACAINE HCL/PF 0.25% (2.5MG/ML) 10 ML VIAL ONE (08:16)
[2021-10-13] MEDS ORDERED: BUPIVACAINE HCL/PF 2.5 MG/ML - 30 ML VIAL IJ ONE (11:10)
[2021-10-13 11:56] VITALS: TEMP 97.7
[2021-10-13 12:04] VITALS: BP 140/70; PULSE 60
== END 2021-10-13 12:10 | disposition home or self-care (01) ==
LOC: JASU-SURG 03:52
PROVIDERS: ATTEND Pain Medicine Pain Medicine
PROC: 3E0T33Z Introduction of Anti-inflammatory into Peripheral Nerves and Plexi, Percutaneous Approach (ICD-10-PCS; 2021-10-13)
PROC: 3E0T3BZ Introduction of Anesthetic Agent into Peripheral Nerves and Plexi, Percutaneous Approach (ICD-10-PCS; principal; 2021-10-13 09:15)
DX: M47.812 Spondylosis without myelopathy or radiculopathy, cervical region (principal); E11.9 Type 2 diabetes mellitus without complications; I10 Essential (primary) hypertension; Z79.84 Long term (current) use of oral hypoglycemic drugs; Z72.0 Tobacco use
CPT/HCPCS: 76000-TC-FY; J1100

== ENCOUNTER 2021-10-31 14:35 | Emergency (ER) | payer OTHER ==
[2021-10-31 14:45] VITALS: BP 124/75; PULSE 91; RESP 18; TEMP 98.2; BMI 38.9
[2021-10-31] MEDS ORDERED: METHOCARBAMOL 500 MG TABLET PO ONE (15:20)
[2021-10-31] MEDS ORDERED: KETOROLAC TROMETHAMINE 30 MG/1 ML VIAL IM ONE (15:20)
[2021-10-31] MEDS ORDERED: METHOCARBAMOL 500 MG TABLET ONE (15:25)
[2021-10-31] MEDS ORDERED: KETOROLAC TROMETHAMINE 30 MG/1 ML VIAL ONE (15:25)
== END 2021-10-31 16:04 | disposition home or self-care (01) ==
LOC: JERFT 14:35
PROC: 3E0233Z Introduction of Anti-inflammatory into Muscle, Percutaneous Approach (ICD-10-PCS; principal; 2021-10-31)
DX: M79.601 Pain in right arm (principal); S46.911A Strain of unspecified muscle, fascia and tendon at shoulder and upper arm level, right arm, initial encounter
CPT/HCPCS: 73030-TC-RT-FY; 99284-25

== ENCOUNTER 2021-11-13 03:58 | Day surgery (SDC) | payer OTHER ==
[2021-11-11 10:34] VITALS: BMI 39.9
[2021-11-13] MEDS ORDERED: DEXAMETHASONE SOD PHOSPHATE 10 MG/1 ML VIAL ONE (07:14)
[2021-11-13] MEDS ORDERED: LIDOCAINE HCL/PF 1% SDV 5ML VIAL ONE (07:14)
[2021-11-13] MEDS ORDERED: LIDOCAINE HCL/PF 2% SDV 5ML VIAL ONE (07:22)
[2021-11-13 07:35] VITALS: RESP 18
[2021-11-13] MEDS ORDERED: BUPIVACAINE HCL/PF 0.5% (5MG/ML) 10 ML VIAL ONE (09:05)
[2021-11-13] MEDS ORDERED: LIDOCAINE HCL 1% PRESERVATIVE FREE - 30ML VIAL IJ ONE (09:12)
[2021-11-13] MEDS ORDERED: BUPIVACAINE HCL/PF 0.5% (5MG/ML) 10 ML VIAL IJ ONE (09:12)
[2021-11-13] MEDS ORDERED: DEXAMETHASONE SOD PHOSPHATE 10 MG/1 ML VIAL IVPUSH ONE (09:12)
[2021-11-13] MEDS ORDERED: LIDOCAINE HCL/PF 2% SDV 5ML VIAL INF ONE (09:12)
[2021-11-13 11:08] VITALS: BP 140/70; PULSE 73; TEMP 98.9
== END 2021-11-13 10:30 | disposition home or self-care (01) ==
LOC: JASU-SURG 03:58
PROVIDERS: ATTEND Pain Medicine Pain Medicine
PROC: 3E0T3TZ Introduction of Destructive Agent into Peripheral Nerves and Plexi, Percutaneous Approach (ICD-10-PCS; principal; 2021-11-13 08:45)
DX: M47.812 Spondylosis without myelopathy or radiculopathy, cervical region (principal)
CPT/HCPCS: 76000-TC-FY; J1100

== ENCOUNTER 2021-12-25 04:56 | Day surgery (SDC) | payer OTHER ==
[2021-12-22 13:20] VITALS: BMI 36.2
[2021-12-25 06:31] VITALS: RESP 18
[2021-12-25] MEDS ORDERED: LIDOCAINE HCL/PF 1% SDV 5ML VIAL ONE (07:19)
[2021-12-25] MEDS ORDERED: BUPIVACAINE HCL/PF 0.75% 10 ML VIAL ONE (07:19)
[2021-12-25] MEDS ORDERED: DEXAMETHASONE SOD PHOSPHATE 10 MG/1 ML VIAL ONE (07:20)
[2021-12-25] MEDS ORDERED: LIDOCAINE HCL 1% PRESERVATIVE FREE - 30ML VIAL IJ ONE (08:50)
[2021-12-25] MEDS ORDERED: BUPIVACAINE HCL/PF 0.5% (5MG/ML) 10 ML VIAL IJ ONE (08:50)
[2021-12-25] MEDS ORDERED: LIDOCAINE HCL/PF 2% SDV 5ML VIAL PNB ONE (08:50)
[2021-12-25 10:27] VITALS: BP 129/75; PULSE 77; TEMP 98
== END 2021-12-25 10:15 | disposition home or self-care (01) ==
LOC: JASU-SURG 04:56
PROVIDERS: ATTEND Pain Medicine Pain Medicine
PROC: 3E0T3TZ Introduction of Destructive Agent into Peripheral Nerves and Plexi, Percutaneous Approach (ICD-10-PCS; principal; 2021-12-25 08:00)
PROC: BR14YZZ Fluoroscopy of Cervical Facet Joint(s) using Other Contrast (ICD-10-PCS; 2021-12-25 08:00)
DX: M47.812 Spondylosis without myelopathy or radiculopathy, cervical region (principal); I10 Essential (primary) hypertension; E11.9 Type 2 diabetes mellitus without complications; Z79.84 Long term (current) use of oral hypoglycemic drugs
CPT/HCPCS: 76000-TC-FY; J1100

== ENCOUNTER 2021-12-26 11:09 | Emergency (ER) | payer OTHER ==
[2021-12-26 11:16] VITALS: BP 122/70; PULSE 78; RESP 16; TEMP 98.2; BMI 34.9
[2021-12-26] MEDS ORDERED: SODIUM CHLORIDE 0.9% 500 ML INFUS.BAG IV ONE (11:53)
[2021-12-26 12:18] LABS: BASO % 0.3 % (0-2.0); EOS % 0.4 % (0-4.5); HEMATOCRIT 36.2 % (32.4-45.2); LYMPH % 22.1 % (8-40); MCH 26.8 pg (25.7-33.7); MCHC 33.2 g/dl (32.0-36.0); MEAN CELL VOLUME 80.9 fl (80-96); MEAN PLT VOLUME 6.4 fl (7.5-11.1); MONO % 7.1 % (3.8-10.2); NEUT % 70.1 % (42.8-82.8); PLATELET COUNT 385 10^3/uL (134-434); RBC 4.47 M/mm3 (3.60-5.2); RDW 15.2 % (11.6-15.6); WHITE BLOOD COUNT 13.1 K/mm3 (4.0-10.0)
[2021-12-26 12:31] LABS: ALBUMIN 3.8 g/dl (3.4-5.0); BLOOD UREA NITROGEN 24.4 mg/dL (7-18); CALCIUM 9.6 mg/dL (8.5-10.1); MAGNESIUM 2.1 mg/dL (1.8-2.4)
[2021-12-26 12:35] LABS: BILIRUBIN,TOTAL 0.3 mg/dL (0.2-1); CREATININE 1.3 mg/dL (0.55-1.3)
[2021-12-26 13:35] LABS: EPI CELLS 12 /uL (0-25.1); HYALINE CASTS 1 /uL (0-3.1); PH,URINE 5.5 (5.0-8.0); URINE APPEARANCE CLEAR; URINE BACTERIA >9,000 /uL (0-1359); URINE BILIRUBIN NEGATIVE (NEGATIVE); URINE COLOR YELLOW; URINE GLUCOSE (UA) NEGATIVE (NEGATIVE); URINE KETONE NEGATIVE (NEGATIVE); URINE LEUK ESTERASE 1+ (NEGATIVE); URINE NITRITE POSITIVE (NEGATIVE); URINE PROTEIN NEGATIVE (NEGATIVE); URINE RBC 4 /uL (0-23.9); URINE UROBILINOGEN 0.2 mg/dL (0.2-1.0); URINE WBC 36 /uL (0-25.8)
[2021-12-26] MEDS ORDERED: CEPHALEXIN MONOHYDRATE 500 MG CAPSULE (UD) PO ONE (13:45)
[2021-12-26] MEDS ORDERED: CEPHALEXIN MONOHYDRATE 500 MG CAPSULE (UD) ONE (13:49)
== END 2021-12-26 14:03 | disposition home or self-care (01) ==
LOC: JER 11:09
DX: R55 Syncope and collapse (principal)
CPT/HCPCS: 0241U-QW; 36415; 71046-TC-FY; 80053; 81003; 82962; 83735; 84484; 85025; 87086; 87186; 93005; 93010; 99285-25

== ENCOUNTER 2023-09-06 13:37 | Emergency (ER) | payer OTHER ==
[2023-09-06 13:51] VITALS: BP 165/67; PULSE 89; RESP 17; TEMP 98.5; BMI 43.4
[2023-09-06] MEDS ORDERED: METHOCARBAMOL 500 MG TABLET ONE (15:32)
[2023-09-06] MEDS ORDERED: KETOROLAC TROMETHAMINE 30 MG/1 ML VIAL ONE (15:32)
[2023-09-06] MEDS: KETOROLAC TROMETHAMINE 30 MG/1 ML VIAL IM ONE (15:54)
[2023-09-06] MEDS: METHOCARBAMOL 500 MG TABLET PO ONE (15:54)
[2023-09-06 16:08] LABS: EPI CELLS >36 /uL (0-25.1); HYALINE CASTS 1 /uL (0-3.1); URINE APPEARANCE CLEAR; URINE BACTERIA 158 /uL (0-1359); URINE BILIRUBIN NEGATIVE (NEGATIVE); URINE COLOR YELLOW; URINE GLUCOSE (UA) NEGATIVE (NEGATIVE); URINE KETONE TRACE (NEGATIVE); URINE LEUK ESTERASE 1+ (NEGATIVE); URINE NITRITE NEGATIVE (NEGATIVE); URINE PROTEIN 3+ (NEGATIVE); URINE RBC 21 /uL (0-23.9); URINE WBC 57 /uL (0-25.8)
[2023-09-06] MEDS ORDERED: CEPHALEXIN MONOHYDRATE 500 MG CAPSULE (UD) ONE (16:31)
[2023-09-06] MEDS: CEPHALEXIN MONOHYDRATE 500 MG CAPSULE (UD) PO ONE (16:32)
[2023-09-06 16:46] LABS: YEAST NONE SEEN (NEGATIVE)
[2023-09-06 16:47] LABS: URINE CRYSTALS FEW /hpf
== END 2023-09-06 16:35 | disposition home or self-care (01) ==
LOC: JERFT 13:37
PROC: 3E0233Z Introduction of Anti-inflammatory into Muscle, Percutaneous Approach (ICD-10-PCS; principal; 2023-09-06)
DX: M25.552 Pain in left hip (principal); N39.0 Urinary tract infection, site not specified
CPT/HCPCS: 73521-TC-FY; 81003; 87077; 87086; 99284-25

== ENCOUNTER 2023-09-26 15:52 | Emergency (ER) | payer OTHER ==
[2023-09-26 16:13] VITALS: BP 167/60; PULSE 86; RESP 18; TEMP 98; BMI 43.1
[2023-09-26] MEDS ORDERED: ACETAMINOPHEN 500 MG TABLET (FP) ONE ×2 (17:46→18:35)
[2023-09-26] MEDS ORDERED: LIDOCAINE 4% PATCH TP ONE ×2 (17:46→18:35)
[2023-09-26] MEDS: ACETAMINOPHEN 500 MG TABLET (FP) PO ONE (17:51)
[2023-09-26] MEDS: LIDOCAINE 5% TOPICAL PATCH TP ONE (17:51)
[2023-09-26 19:21] LABS: EPI CELLS 23 /uL (0-25.1); HYALINE CASTS 2 /uL (0-3.1); PH,URINE 5.5 (5.0-8.0); URINE APPEARANCE CLEAR; URINE BACTERIA 66 /uL (0-1359); URINE BILIRUBIN NEGATIVE (NEGATIVE); URINE COLOR YELLOW; URINE GLUCOSE (UA) NEGATIVE (NEGATIVE); URINE KETONE TRACE (NEGATIVE); URINE LEUK ESTERASE 1+ (NEGATIVE); URINE NITRITE NEGATIVE (NEGATIVE); URINE PROTEIN 3+ (NEGATIVE); URINE RBC 34 /uL (0-23.9); URINE UROBILINOGEN 0.2 mg/dL (0.2-1.0); URINE WBC 34 /uL (0-25.8)
[2023-09-26 19:30] LABS: BASO % 0.8 % (0-2.0); EOS % 4.4 % (0-4.5); HEMATOCRIT 36.1 % (32.4-45.2); HEMOGLOBIN 11.9 GM/dL (10.7-15.3); LYMPH % 37.1 % (8-40); MCH 27.7 pg (25.7-33.7); MCHC 32.9 g/dl (32.0-36.0); MEAN CELL VOLUME 84.1 fl (80-96); MEAN PLT VOLUME 6.5 fl (7.5-11.1); NEUT % 49.7 % (42.8-82.8); PLATELET COUNT 316 10^3/uL (134-434); RBC 4.29 M/mm3 (3.60-5.2); RDW 14.6 % (11.6-15.6); WHITE BLOOD COUNT 9.4 K/mm3 (4.0-10.0)
[2023-09-26 19:43] LABS: POTASSIUM 4.6 mmol/L (3.5-5.1)
[2023-09-26 19:44] LABS: CALCIUM 9.4 mg/dL (8.5-10.1)
[2023-09-26 19:45] LABS: ALBUMIN 3.5 g/dl (3.4-5.0)
[2023-09-26 19:46] LABS: BLOOD UREA NITROGEN 17.6 mg/dL (7-18)
[2023-09-26 19:48] LABS: CREATININE 1.1 mg/dL (0.55-1.3)
[2023-09-26 19:49] LABS: BILIRUBIN,TOTAL 0.2 mg/dL (0.2-1); TOT PROT 6.3 g/dl (6.4-8.2)
[2023-09-26] MEDS ORDERED: oxyCODONE HCL 5 MG TABLET ONE (21:38)
[2023-09-26] MEDS: oxyCODONE HCL 5 MG TABLET PO ONE (21:40)
[2023-09-26] MEDS: LIDOCAINE PATCH REMOVAL MC SCH (21:41)
== END 2023-09-26 22:32 | disposition home or self-care (01) ==
LOC: JERFT 15:52
DX: M46.96 Unspecified inflammatory spondylopathy, lumbar region (principal); R10.32 Left lower quadrant pain
CPT/HCPCS: 36415; 72131-TC; 73502-TC-LT-FY; 74177-TC; 80053; 81003; 85025; 87086; 99285-25; Q9967

== ENCOUNTER 2024-01-02 18:33 | Emergency (ER) | payer OTHER ==
[2024-01-02 18:43] VITALS: BP 191/96; PULSE 86; RESP 16; TEMP 98.4; BMI 40.0
[2024-01-02] MEDS ORDERED: BACITRACIN ZINC 15 GM TUBE TOPICAL OINTMENT ONE (20:05)
[2024-01-02] MEDS ORDERED: CEPHALEXIN MONOHYDRATE 500 MG CAPSULE (UD) ONE (20:06)
[2024-01-02] MEDS: BACITRACIN ZINC 15 GM TUBE TOPICAL OINTMENT TP ONE (20:07)
[2024-01-02] MEDS: CEPHALEXIN MONOHYDRATE 500 MG CAPSULE (UD) PO ONE (20:07)
== END 2024-01-02 20:38 | disposition home or self-care (01) ==
LOC: JERFT 18:33
DX: S31.819A Unspecified open wound of right buttock, initial encounter (principal); X58.XXXA Exposure to other specified factors, initial encounter
CPT/HCPCS: 99283-25